=== PATIENT | female | born 1965 | race Caucasian/White ===

== ENCOUNTER → 2020-01-30 10:27 | Outpatient (BNVA) | payer SELFPAY | PROVIDERS: Visit Provider Family Medicine Adult Medicine | DX: N39.0 Urinary tract infection, site not specified (principal) | CPT/HCPCS: 81000 ==

== ENCOUNTER → 2020-02-02 11:51 | Outpatient (BNVA) | payer SELFPAY | DX: R50.9 Fever, unspecified (principal) | CPT/HCPCS: 87400 ==

== ENCOUNTER 2020-12-05 16:16 | Emergency (ER) | payer SELFPAY ==
[2020-12-05 17:56] VITALS: BP 105/69; PULSE 67; RESP 12; TEMP 36.9; O2SAT 97; BMI 20.9
--- NOTE | 2020-12-05 20:04 | XRR_ITS ---
PROCEDURE INFORMATION: Exam: XR Left Foot Exam date and time: 12/05/2020 8:04 PM Age: 55 years old Clinical indication: Injury or trauma; Other: Dropped pallet on foot; Blunt trauma; Injury date: 11/06/2020; Injury details: Dropped loaded pallet on foot. Left foot was numb for two weeks. TECHNIQUE: Imaging protocol: XR Left foot. Views: 3 or more views. COMPARISON: No relevant prior studies available. FINDINGS: Bones/joints: Normal. Soft tissues: Normal. XR/XR foot LT min 3V* [id number] IMPRESSION: No acute findings.
--- NOTE | 2020-12-05 20:08 | ED_ITS ---
HPI - Extremity Problem General: Chief complaint: Extremity Injury, Lower Stated complaint: L FOOT & TOES INJURY Time Seen by Provider: 12/05/20 20:02 History of Present Illness: HPI Narrative: Patient dropped a pallet on her big toe on her left foot at the beginning of the month. Patient comes in due to continued discomfort and pain to the great toe of the foot. Patient reports at first it was numb then started throbbing. Patient appears well. Patient appears no acute distress. Review of Systems General: Reports: 10 or more systems reviewed and unremarkable except in HPI and below Musc: Reports: other (Injury great toe left foot) [facility] ED PFS: Medical History (Updated 12/05/20 @ 20:23 by PAULETTE Lowery) Nausea URI (upper respiratory infection) Social History (Updated 08/08/20 @ 08:51 by Aleks Dodd LPN) Smoking and tobacco status: former smoker Quit status (tobacco): has quit using tobacco Year quit tobacco: 2017 Second hand smoke exposure: No Alcohol intake: never Lives independently: No Household members: family Housing: House Marital status: Number of children: 3 Number of grandchildren: 2 Highest education level completed: High School Graduate service: No Current occupational status: employed Current occupation: [email or web address] Current occupational exposures/hazards: Yes Pets and animals: Yes Pets & animals: dog(s) History of recent travel: No Sexually active: No Current gender identity: Female Physical Exam Const: COMMON NORMALS: no acute distress and patient oriented x3 GENERAL APPEARANCE: cooperative HENMT: COMMON NORMALS: normocephalic and Normal external nose present HEAD & SCALP: normal to inspection and normocephalic NOSE: Normal external nose present MOUTH: Normal oral and palatal mucosa present Eye: GENERAL EYE: appearance normal, both eyes and all related structures Neck/C-Spine: COMMON NORMALS: full ROM Chest: COMMONS NORMALS: normal inspection of the chest Resp: COMMON NORMALS: normal respiratory effort EFFORT & INSPECTION: Yes able to speak in complete sentences Cardio: COMMON NORMALS: regular rate and regular rhythm RATE: regular rate RHYTHM: regular rhythm GI: COMMON NORMALS: non-tender : COMMON NORMALS: Yes no CVA tenderness BLADDER/KIDNEY EXAM: Yes no CVA tenderness Back/Pelvis: COMMON NORMALS: no CVA tenderness and thoracic and lumbar spine normal to inspection Extremity: NARRATIVE EXTREMITY EXAM: Partial avulsion of the great toe nail on the left foot. Remainder exam of the foot is normal. Neuro: COMMON NORMALS: patient oriented x3 and moves all extremities Psych: COMMON NORMALS: mental status grossly normal and cooperative Skin: COMMON NORMALS: no rashes or lesions noted GENERAL SKIN EXAM: no rashes or lesions noted Course Vital Signs: Vital signs: Vital Signs Temperature 98.5 F 12/05/20 17:56 Pulse Rate 67 12/05/20 17:56 Respiratory Rate 12 12/05/20 17:56 Blood Pressure 105/69 12/05/20 17:56 Pulse Oximetry 97 12/05/20 17:56 MDM - Extremity (Nontraumatic) MDM Narrative: Medical decision making narrative: 55-year-old female comes in today with complaints of injury to the great toe on her left foot. On exam we see a loosened nail of the great toe on the left foot. No significant swelling or bruising is noted. Pulses are intact. Differential diagnosis includes partial toenail avulsion, fracture of the toe, contusion. X-ray noted no acute fracture although there may have been a old fracture that has healed. Reviewed exam with patient recommended protection of the nail with securing it with dressing or tape. Reviewed that the nail was going to come off is just probably whenever she is taking her foot and her shoe on her office catching and pulling on the nail bed. I recommended trimming the nail down as much as possible and taping it to protect it. Patient reported understanding and agreed to plan. Discharge Plan Discharge Patient Disposition: Home Clinical Impression: Toenail avulsion Qualifiers: Encounter type: initial encounter Qualified Code(s): S91.209A - Unspecified open wound of unspecified toe(s) with damage to nail, initial encounter Condition: Stable Prescriptions: No Action trazodone 50 mg tablet 100 mg PO .HS PRN (Reason: insomnia) Qty: 60 RF: 2 sertraline [Zoloft] 100 mg tablet 100 mg PO DAILY Qty: 30 RF: 2 levothyroxine 50 mcg capsule 50 mcg PO DAILY RF: 0 Discharge Orders: Discharge ED (Routine); Ordered 12/05/20 Ordered By: Martinez Salter Referrals: Chanell Moe, TI[employer]BE TECHNICIAN [Primary Care Provider] - Discharge Diet: Usual diet Discharge Activity: Increase activity as tolerated Patient Instructions: Foot Contusion (ED), Opioid Safety Activity Restrictions/Additional Instructions: Your toenail is partially avulsed. This means that it sustained significant injury causing part of it to . It will fall off in time. At this time it has loosened from the nail bed and a new nail is growing under it. I would recommend securing the nail with tape to protect it. Over the next 2 to 4 weeks I would expect the old nail to fall off. You could soak the nail in some Epson salt water to promote its loosening and removal. I would allow the nail to come off on its own. You could also trim the nail that is loosening up down with clippers. Watch the site for signs of infection such as redness or swelling. Wear a supportive comfortable shoe for protection. Follow-up with primary care or binder stripper machine of your choice. Coding Level of Care Code ED Clinical Investigator for Miesha Fweduin Exam Comprehensive
== END 2020-12-05 20:35 | disposition home or self-care (01) ==
PROVIDERS: Emergency Provider Nurse Practitioner Family; PCP Nurse Practitioner Family
DX: S91.202A Unspecified open wound of left great toe with damage to nail, initial encounter (principal); Z87.891 Personal history of nicotine dependence; W20.8XXA Other cause of strike by thrown, projected or falling object, initial encounter
CPT/HCPCS: 73630; 99282

== ENCOUNTER 2021-02-09 09:38 | Outpatient (CLI) | payer SELFPAY ==
[2021-02-09 10:18] LABS: Basophils # 0.1 10^3/uL (0.0-0.1); Basophils % 0.8 %; Eosinophils # 0.3 10^3/uL (0.0-0.8); Eosinophils % 4.2 %; Hematocrit 44.4 % (37.0-47.0); Hemoglobin 14.4 g/dL (11.5-15.3); Lymphocytes # 2.5 10^3/uL (0.8-4.8); Lymphocytes % 40.4 %; Mean Corpuscular HGB Conc 32.4 g/dL (30.0-36.0); Mean Corpuscular Hemoglobin 28.8 pg (28.0-34.0); Mean Corpuscular Volume 88.8 fl (81-99); Mean Platelet Volume 9.6 fL (7.4-10.4); Monocytes # 0.4 10^3/uL (0.2-0.9); Monocytes % 6.3 %; Neutrophils # 3.01 10^3/uL (1.8-7.7); Neutrophils % 48.1 %; Nucleated Red Blood Cells % 0 %; Platelet Count 233 10^3/cmm (130-400); Red Cell Distribution Width 12.7 % (12.1-15.1); White Blood Count 6.2 10^3/uL (4.0-10.0)
[2021-02-09 10:43] LABS: Alanine Aminotransferase 17 U/L (0-33); Albumin Level 4.2 g/dL (3.5-5.2); Alkaline Phosphatase 82 IU/L (35-105); Blood Urea Nitrogen 14 mg/dL (6-20); Calcium 9.3 mg/dL (8.5-10.5); Carbon Dioxide 26 mmol/L (22-29); Chloride 103 mmol/L (98-107); Globulin 3.1 g/dL (1.3-4.6); Glomerular Filtration Rate 127.6 mL/min (90-130); Glucose 85 mg/dL (65-115); Osmolality Calculated 288 mOsm/kg (285-295); Sodium 139 mmol/L (136-145); Total Bilirubin 0.7 mg/dL (0.15-1.2); Total Protein 7.3 g/dL (6.6-8.7)
[2021-02-09 11:13] LABS: Anion Gap 13.8 (5-19); Aspartate Amino Transferase 20 U/L (0-32); Potassium 3.8 mmol/L (3.5-5.1)
== END 2021-02-09 09:39 | disposition home or self-care (01) ==
LOC: LAB 09:43
PROVIDERS: PCP Nurse Practitioner Family; Visit Provider Nurse Practitioner Family
DX: A08.4 Viral intestinal infection, unspecified (principal); E78.5 Hyperlipidemia, unspecified
CPT/HCPCS: 36415; 80053; 83630; 85025; 87493; 87506

== ENCOUNTER 2021-02-27 14:06 | Emergency (ER) | payer SELFPAY ==
[2021-02-27 14:12] VITALS: BP 103/69; PULSE 92; RESP 19; TEMP 36.4; O2SAT 96; BMI 21.6
[2021-02-27 14:17] VITALS: BP 111/68; PULSE 69; RESP 17; TEMP 36.8; O2SAT 98
--- NOTE | 2021-02-27 14:25 | XR_ITS ---
WS: [id number] Portable AP upright chest, 02/27/2021 Clinical Data: chest pain and dyspnea; covid 6 weeks ago Comparison: None. Findings: No nodules, masses or effusions are seen. The heart is normal. The pulmonary vascularity is not increased. No pneumothorax is seen. There is minimal patchy bilateral lower lobe opacity which c ould represent atelectasis and/or minimal pneumonia. Monitor leads on the chest wall. There is a dext roscoliosis. XR/XR chest 1V portable [id number] Impression: Minimal patchy lower lobe pulmonary opacity and recommend follow-up chest x-ray in 3-5 days.
--- NOTE | 2021-02-27 14:25 | ECG_ITS ---
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 Measurements Intervals Sarita Rate: 82 P: 71 AZ: 177 QRS: 80 QRSD: 81 T: 68 QT: 374 QTc: 439 Interpretive Statements SINUS RHYTHM No previous ECG available for comparison Electronically Signed On 02-27-2021 22:38:52 CDT by Saman Guillen M.D. [email or web address]
--- NOTE | 2021-02-27 14:28 | ED_ITS ---
HPI - SOB/Dyspnea General: Chief Complaint: Shortness of Breath/Dyspnea Stated Complaint: CP, SOB Time Seen by Provider: 02/27/21 14:19 Source: patient and family Mode of arrival: ambulatory Limitations: no limitations History of Present Illness: HPI Narrative: Patient with complaints of increased shortness of breath over the past 2 weeks. She states she had Covid approximately 6 weeks ago. She also reports pleuritic chest pain bilaterally in the sternal area. She also reports gastric reflux occasionally. She states pain sometimes radiates to her right shoulder. She denies any fever. She does have a dry cough. She states she has been back to work since February 08. She states she was diagnosed with Covid in mid-January. She denies any recent fever or chills. Possible history includes hypothyroidism and depression. She takes Zoloft and thyroid replacement medication. She does not smoke. Primary care physicians at [facility]. She denies any possible history of diabetes or heart disease. MD elicited complaint: shortness of breath, cough, pain with inspiration and chest pain Pertinent past history: other (Covid infection 6 weeks ago) Onset (ago): week(s) (2) Timing: constant and other (Fluctuating intensity) Severity: mild Exacerbating factors: exertion Relieving factors: rest Associated symptoms: Reports chest pain and cough; Deny abdominal pain, chest congestion, diaphoresis, dizziness, extremity pain, fever(s), hemoptysis, lightheadedness, myalgias, nausea, orthopnea, palpitations, paresthesias, syncope or vomiting Treatment prior to arrival: none Related Data: Home oxygen amount: none Review of Systems Const: Reports: fatigue; Denies: fever(s), chills or diaphoresis Eyes: Denies: change in vision ENMT: Denies: throat pain Card: Reports: chest pain and dyspnea on exertion; Denies: palpitations, irregular heart rhythm, swelling of feet/ankles, lightheadedness, syncope, orthopnea or leg pain with exertion Resp: Reports: dyspnea, non-productive cough and pain on inspiration; Denies: productive cough, wheezing, stridor, hemoptysis or chest congestion GI: Denies: abdominal pain, nausea or vomiting : Denies: flank pain Musc: Denies: neck pain, back pain, extremity pain or extremity swelling Skin/Breast: Denies: rash or pruritus Neuro: Denies: headache(s) or dizziness Psych: Denies: anxiety Ruben/Lymph: Denies: enlarged lymph nodes PFSH ED PFSH: Medical History Nausea Psychiatric care URI (upper respiratory infection) Social History Smoking and tobacco status: former smoker Quit status (tobacco): has quit using tobacco Year quit tobacco: 2017 Second hand smoke exposure: No Alcohol intake: never Lives independently: No Household members: family Housing: House Marital status: Number of children: 3 Number of grandchildren: 2 Highest education level completed: High School Graduate service: No Current occupational status: employed Current occupation: [employer] Current occupational exposures/hazards: Yes Pets and animals: Yes Pets & animals: dog(s) History of recent travel: No Sexually active: No Current gender identity: Female Physical Exam Const: COMMON NORMALS: no acute distress, patient oriented x3, no limitations, alert and well nourished GENERAL APPEARANCE: cooperative HENMT: COMMON NORMALS: normocephalic and atraumatic HEAD & SCALP: normocephalic and atraumatic FACE & SINUS: normal facial exam Eye: COMMON NORMALS: EOMs intact bilaterally Neck/C-Spine: COMMON NORMALS: full ROM, no lymphadenopathy, supple and no meningeal signs GENERAL: Yes normal visual inspection Lymph: LYMPHATIC: no lymphadenopathy noted Chest: COMMONS NORMALS: normal inspection of the chest and normal palpation of entire chest wall CHEST: No Ecchymosis present and No rash Resp: COMMON NORMALS: normal respiratory effort, No retractions, No use of accessory muscles and clear to auscultation bilaterally EFFORT & INSPECTION: No respiratory distress AUSCULTATION: clear to auscultation bilaterally Cardio: COMMON NORMALS: regular rate, regular rhythm and Peripheral pulses 2+ throughout JUGULAR VENOUS DISTENTION: no JVD RATE: regular rate RHYTHM: regular rhythm PERIPHERAL PULSES: Peripheral pulses 2+ throughout GI: COMMON NORMALS: Normal to inspection, nondistended, normoactive bowel sounds present and non-tender : COMMON NORMALS: Yes no CVA tenderness BLADDER/KIDNEY EXAM: Yes no CVA tenderness Back/Pelvis: COMMON NORMALS: no CVA tenderness Extremity: COMMON NORMALS: normal to inspection, full ROM and capillary refill normal Neuro: COMMON NORMALS: patient oriented x3, CN's II-XII intact bilaterally, no focal motor deficits and no sensory deficits noted SENSORIUM/ORIENTATION: Yes alert MENINGEAL SIGNS: Yes no meningeal signs Psych: COMMON NORMALS: mental status grossly normal and Normal thought process present THOUGHT PROCESS: Normal thought process present Skin: COMMON NORMALS: no rashes or lesions noted and no wounds GENERAL SKIN EXAM: no rashes or lesions noted Course Vital Signs: Vital signs: Vital Signs Temperature 98.3 F 02/27/21 14:17 Pulse Rate 69 02/27/21 14:17 Respiratory Rate 17 02/27/21 14:17 Blood Pressure 111/68 02/27/21 14:17 Pulse Oximetry 98 02/27/21 14:17 MDM - SOB/Dyspnea MDM Narrative: Medical decision making narrative: See nursing assessment. Labs appear essentially within normal limits except for a D-dimer being mildly elevated. Lab Data: Labs: Lab Results 02/27/21 02/27/21 02/27/21 14:40 14:40 14:40 WBC 5.6 10^3/uL 10^3/ uL (4.0-10.0) RBC 4.78 10^6/uL 10^6 /uL (4.1-5.3) Hgb 13.8 g/dL g/dL (11.5-15.3) Hct 42.4 % % (37.0-47.0) MCV 88.7 fl fl (81-99) MCH 28.9 pg pg (28.0-34.0) MCHC 32.5 g/dL g/dL (30.0-36.0) RDW 12.8 % % (12.1-15.1) Plt Count 206 10^3/cmm 10^3 /cmm (130-400) MPV 9.3 fL fL (7.4-10.4) Neut % (Auto) 39.5 % % Lymph % (Auto) 45.9 % % [place] % (Auto) 7.3 % % Eos % (Auto) 6.4 % % Baso % (Auto) 0.7 % % Neut # (Auto) 2.23 10^3/uL 10^3 /uL (1.8-7.7) Lymph # (Auto) 2.6 10^3/uL 10^3/ uL (0.8-4.8) [place] # (Auto) 0.4 10^3/uL 10^3/ uL (0.2-0.9) Eos # (Auto) 0.4 10^3/uL 10^3/ uL (0.0-0.8) Baso # (Auto) 0.0 10^3/uL 10^3/ uL (0.0-0.1) Nucleated RBC % (a uto) 0 % % Nucleated RBCs # 0.0 /100WBC /100W BC APTT 26.6 SECONDS SECO NDS (23.9-36.7) D-Dimer 2.28 ug/mIFEU H u g/mIFEU (0-0.59) Sodium 139 mmol/L mmol/L (136-145) Potassium 4.0 mmol/L mmol/L (3.5-5.1) Chloride 101 mmol/L mmol/L (98-107) Carbon Dioxide 24 mmol/L mmol/L (22-29) Anion Gap 18.0 (5-19) BUN 14 mg/dL mg/dL (6-20) Creatinine 0.7 mg/dL mg/dL (0.5-0.9) GFR Calculation 86.2 mL/min L mL/ min (90-130) Glucose 101 mg/dL mg/dL (65-115) Calculated Osmolal ity 289 mOsm/kg mOsm/ kg (285-295) Lactate Calcium 9.4 mg/dL mg/dL (8.5-10.5) Total Bilirubin 0.7 mg/dL mg/dL (0.15-1.2) AST 23 U/L U/L (0-32) ALT 18 U/L U/L (0-33) Alkaline Phosphata se 93 IU/L IU/L (35-105) Troponin T Baselin e Troponin T 120 Min [place] Delta Troponin T Total Protein 7.5 g/dL g/dL (6.6-8.7) Albumin 4.4 g/dL g/dL (3.5-5.2) Globulin 3.1 g/dL g/dL (1.3-4.6) 02/27/21 02/27/21 02/27/21 14:40 14:40 16:44 WBC RBC Hgb Hct MCV MCH MCHC RDW Plt Count MPV Neut % (Auto) Lymph % (Auto) [place] % (Auto) Eos % (Auto) Baso % (Auto) Neut # (Auto) Lymph # (Auto) [place] # (Auto) Eos # (Auto) Baso # (Auto) Nucleated RBC % (a uto) Nucleated RBCs # APTT D-Dimer Sodium Potassium Chloride Carbon Dioxide Anion Gap BUN Creatinine GFR Calculation Glucose Calculated Osmolal ity Lactate 1.8 mmol/L mmol/L (0.5-2.2) Calcium Total Bilirubin AST ALT Alkaline Phosphata se Troponin T Baselin e 6 ng/L ng/L (0-10) Troponin T 120 Min [place] 6.00 ng/L ng/L (0-10) Delta Troponin T 0 ABS# ABS# (0-10) Total Protein Albumin Globulin Imaging Data^: CXR: Attestation: I personally reviewed and interpreted this imaging study as follows: My impression: Atelectasis in the bases bilaterally. Radiologist's impression: Ordering Provider/Ordering MD: Nathan Andres MD Date of Service: 02/27/21 Procedure(s): XR chest 1V portable [id number] Accession Number(s): [id number] Report Number: [id number] WS: [id number] Portable AP upright chest, 02/27/2021 Clinical Data: chest pain and dyspnea; covid 6 weeks ago Comparison: None. Findings: No nodules, masses or effusions are seen. The heart is normal. The pulmonary vascularity is not increased. No pneumothorax is seen. There is minimal patchy bilateral lower lobe opacity which could represent atelectasis and/or minimal pneumonia. Monitor leads on the chest wall. There is a dextroscoliosis. XR/XR chest 1V portable [id number] Impression: Minimal patchy lower lobe pulmonary opacity and recommend follow-up chest x-ray in 3-5 days. Dictated By:Morenita Estrada MDSigned By:Morenita Estrada MDSigned Date/Time:02/27/[address] Chest: Radiologist's impression: PROCEDURE INFORMATION: Exam: CTA Chest With Contrast Exam date and time: 02/27/2021 3:45 PM Age: 56 years old Clinical indication: Shortness of breath; Sternal or substernal pain; Patient HX: Post covid C/O steernal cp and SOB x 2 weeks; Additional info: Shortness of breath, covid infection 6 weeks ago. D-dimer 2.28; Normal bun and TECHNIQUE: Imaging protocol: Computed tomographic angiography of the chest with contrast. 3D rendering (Not supervised by radiologist): MIP and/or 3D reconstructed images were created by the technologist. Radiation optimization: All CT scans at this facility use at least one of these dose optimization techniques: automated exposure control; mA and/or kV adjustment per patient size (includes targeted exams where dose is matched to clinical indication); or iterative reconstruction. Contrast material: OMNI 350; Contrast volume: 68 ml; Contrast route: INTRAVENOUS (IV); COMPARISON: CR XR chest 1V portable [id number] 02/27/2021 2:42 PM RADIATION DOSE METRICS: Total DLP (mGy-cm): 504.89 FINDINGS: Pulmonary arteries: Normal. No pulmonary emboli. Aorta: Unremarkable. No aortic aneurysm. No aortic dissection. Lungs: Severe centrilobular emphysema. Mild scarring in the lung apices. Mild atelectasis in the lingula. The lungs are otherwise clear. Pleural spaces: Unremarkable. No pneumothorax. No pleural effusion. Heart: Small pericardial effusion. Mediastinal space: 1.4 cm oval low-density lesion in the anterior mediastinum, Hounsfield units less than 20. Lymph nodes: Unremarkable. No enlarged lymph nodes. Bones/joints: Mild thoracic curvature. Mild degenerative changes. No fracture. Soft tissues: Unremarkable. CT/CT angio chest [id number] IMPRESSION: 1. No evidence for pulmonary embolus or other acute finding. 2. Severe emphysema. 3. 1.4 cm fluid density oval lesion in the anterior mediastinum. This could represent a small congenital cyst or a low-density reactive lymph node. Radiation Dose CTDIVOL = (mGy): DLP = 504.89 (mGy-cm) Dictated By:Gregg Patiño By:Gregg Patiño Date/Time:02/27/211715 Discharge Plan Discharge Clinical Impression: Shortness of breath, Personal history of COVID-19 Condition: Stable Prescriptions: No Action trazodone 50 mg tablet 100 mg PO .HS PRN (Reason: insomnia) Qty: 60 RF: 2 levothyroxine 50 mcg capsule 50 mcg PO DAILY RF: 0 prazosin 2 mg capsule 2 mg PO .HS Qty: 30 RF: 2 sertraline [Zoloft] 100 mg tablet 150 mg PO DAILY Qty: 45 RF: 2 Referrals: Chanell Moe, ASSISTANT FEDERAL PUBLIC DEFENDER [Primary Care Provider] - Coding Level of Care Code ED Registration Rep for Chg Fwd Exam Comprehensive
[2021-02-27 14:54] LABS: Basophils % 0.7 %; Eosinophils # 0.4 10^3/uL (0.0-0.8); Eosinophils % 6.4 %; Hematocrit 42.4 % (37.0-47.0); Hemoglobin 13.8 g/dL (11.5-15.3); Lymphocytes # 2.6 10^3/uL (0.8-4.8); Lymphocytes % 45.9 %; Mean Corpuscular HGB Conc 32.5 g/dL (30.0-36.0); Mean Corpuscular Hemoglobin 28.9 pg (28.0-34.0); Mean Corpuscular Volume 88.7 fl (81-99); Mean Platelet Volume 9.3 fL (7.4-10.4); Monocytes # 0.4 10^3/uL (0.2-0.9); Monocytes % 7.3 %; Neutrophils # 2.23 10^3/uL (1.8-7.7); Neutrophils % 39.5 %; Nucleated Red Blood Cells % 0 %; Platelet Count 206 10^3/cmm (130-400); Red Blood Count 4.78 10^6/uL (4.1-5.3); Red Cell Distribution Width 12.8 % (12.1-15.1); White Blood Count 5.6 10^3/uL (4.0-10.0)
[2021-02-27 15:12] LABS: Partial Thromboplastin Time 26.6 SECONDS (23.9-36.7)
[2021-02-27 15:14] LABS: D Dimer 2.28 ug/mIFEU (0-0.59)
[2021-02-27 15:16] LABS: Troponin(5th) Baseline 6 ng/L (0-10)
[2021-02-27 15:18] LABS: Alanine Aminotransferase 18 U/L (0-33); Albumin Level 4.4 g/dL (3.5-5.2); Alkaline Phosphatase 93 IU/L (35-105); Aspartate Amino Transferase 23 U/L (0-32); Blood Urea Nitrogen 14 mg/dL (6-20); Calcium 9.4 mg/dL (8.5-10.5); Carbon Dioxide 24 mmol/L (22-29); Chloride 101 mmol/L (98-107); Globulin 3.1 g/dL (1.3-4.6); Glomerular Filtration Rate 86.2 mL/min (90-130); Glucose 101 mg/dL (65-115); Osmolality Calculated 289 mOsm/kg (285-295); Sodium 139 mmol/L (136-145); Total Bilirubin 0.7 mg/dL (0.15-1.2); Total Protein 7.5 g/dL (6.6-8.7)
[2021-02-27] MEDS: aspirin 81 mg Chew Tablet 324 MG PO (15:18)
[2021-02-27 15:19] LABS: Lactate (Lactic Acid level) 1.8 mmol/L (0.5-2.2)
--- NOTE | 2021-02-27 15:45 | CTR_ITS ---
PROCEDURE INFORMATION: Exam: CTA Chest With Contrast Exam date and time: 02/27/2021 3:45 PM Age: 56 years old Clinical indication: Shortness of breath; Sternal or substernal pain; Patient HX: Post covid C/O steernal cp and SOB x 2 weeks; Additional info: Shortness of breath, covid infection 6 weeks ago. D-dimer 2.28; Normal bun and TECHNIQUE: Imaging protocol: Computed tomographic angiography of the chest with contrast. 3D rendering (Not supervised by radiologist): MIP and/or 3D reconstructed images were created by the technologist. Radiation optimization: All CT scans at this facility use at least one of these dose optimization techniques: automated exposure control; mA and/or kV adjustment per patient size (includes targeted exams where dose is matched to clinical indication); or iterative reconstruction. Contrast material: OMNI 350; Contrast volume: 68 ml; Contrast route: INTRAVENOUS (IV); COMPARISON: CR XR chest 1V portable [id number] 02/27/2021 2:42 PM RADIATION DOSE METRICS: Total DLP (mGy-cm): 504.89 FINDINGS: Pulmonary arteries: Normal. No pulmonary emboli. Aorta: Unremarkable. No aortic aneurysm. No aortic dissection. Lungs: Severe centrilobular emphysema. Mild scarring in the lung apices. Mild atelectasis in the lingula. The lungs are otherwise clear. Pleural spaces: Unremarkable. No pneumothorax. No pleural effusion. Heart: Small pericardial effusion. Mediastinal space: 1.4 cm oval low-density lesion in the anterior mediastinum, Hounsfield units less than 20. Lymph nodes: Unremarkable. No enlarged lymph nodes. Bones/joints: Mild thoracic curvature. Mild degenerative changes. No fracture. Soft tissues: Unremarkable. CT/CT angio chest [id number] IMPRESSION: 1. No evidence for pulmonary embolus or other acute finding. 2. Severe emphysema. 3. 1.4 cm fluid density oval lesion in the anterior mediastinum. This could represent a small congenital cyst or a low-density reactive lymph node. Radiation Dose CTDIVOL = (mGy): DLP = 504.89 (mGy-cm)
--- NOTE | 2021-02-27 15:48 | PC.NURSE ---
Pt arrived via POV with daughter from home. Pt states for the past 2 weeks she has been having chest pain substernally which worsens with exertion. Pt reports having Covid recently and since then her chest pain has been constant. Pt rates pain 5/10, pt denies any radiation or vomiting but states she has intermittent nausea. Pt A/O, vs taken, pt placed on monitor.
[2021-02-27] MEDS: iohexol 350 mg/mL 100 mL Btl IV (16:20)
[2021-02-27 17:35] LABS: Troponin 5 2HR Delta 0 ABS# (0-10)
== END 2021-02-27 18:32 | disposition home or self-care (01) ==
PROVIDERS: Emergency Provider Family Medicine; PCP Nurse Practitioner Family
DX: R06.02 Shortness of breath (principal); Z86.16 Personal history of COVID-19; Z87.891 Personal history of nicotine dependence
CPT/HCPCS: 71045; 71275; 80053; 83605; 84484; 85025; 85378; 85730; 87040; 93005; 99283; 99291; Q9967

== ENCOUNTER 2021-06-19 10:04 | Emergency (ER) | payer SELFPAY ==
[2021-06-19 10:13] VITALS: PULSE 90; RESP 24; TEMP 36.4; O2SAT 96; BMI 21.1
[2021-06-19 10:27] VITALS: BP 96/66
--- NOTE | 2021-06-19 10:53 | XR_ITS ---
WS: [id number] PORTABLE CHEST HISTORY: chest pain COMPARISON: 02/27/2021 Very minimal atelectasis at the LEFT lung base. Mild biapical pleural thickening and scarring. No pne umonia. No pleural effusion or pneumothorax. Cardiac size: Normal. Mediastinum/Aorta: Normal mediastinum. No osseous abnormality seen. XR/XR chest 1V portable [id number] IMPRESSION: 1. Very minimal atelectasis at the LEFT lung base. 2. No pneumonia.
[2021-06-19 11:11] LABS: Basophils # 0.1 10^3/uL (0.0-0.1); Basophils % 0.7 %; Eosinophils # 0.4 10^3/uL (0.0-0.8); Eosinophils % 4.7 %; Hematocrit 41.9 % (37.0-47.0); Hemoglobin 13.5 g/dL (11.5-15.3); Lymphocytes # 2.4 10^3/uL (0.8-4.8); Lymphocytes % 27.7 %; Mean Corpuscular HGB Conc 32.2 g/dL (30.0-36.0); Mean Corpuscular Hemoglobin 28.6 pg (28.0-34.0); Mean Corpuscular Volume 88.8 fl (81-99); Mean Platelet Volume 9.9 fL (7.4-10.4); Monocytes # 0.6 10^3/uL (0.2-0.9); Neutrophils % 59.7 %; Nucleated Red Blood Cells % 0 %; Platelet Count 229 10^3/cmm (130-400); Red Blood Count 4.72 10^6/uL (4.1-5.3); Red Cell Distribution Width 12.7 % (12.1-15.1); White Blood Count 8.7 10^3/uL (4.0-10.0)
[2021-06-19 11:20] LABS: Troponin(5th) Baseline 6 ng/L (0-10)
[2021-06-19 11:30] LABS: Alanine Aminotransferase 15 U/L (0-33); Albumin Level 4.8 g/dL (3.5-5.2); Alkaline Phosphatase 107 IU/L (35-105); Anion Gap 16.1 (5-19); Aspartate Amino Transferase 22 U/L (0-32); Blood Urea Nitrogen 15 mg/dL (6-20); Calcium 10.4 mg/dL (8.5-10.5); Carbon Dioxide 25 mmol/L (22-29); Chloride 102 mmol/L (98-107); Creatine Phosphokinase 186 U/L (26-192); Globulin 2.5 g/dL (1.3-4.6); Glomerular Filtration Rate 73.9 mL/min (90-130); Glucose 89 mg/dL (65-115); Lipase 30 U/L (13-60); NT Pro B Type Natriuretic Pept 102 pg/mL (0-125); Osmolality Calculated 288 mOsm/kg (285-295); Potassium 4.1 mmol/L (3.5-5.1); Sodium 139 mmol/L (136-145); Total Bilirubin 0.6 mg/dL (0.15-1.2); Total Protein 7.3 g/dL (6.6-8.7)
--- NOTE | 2021-06-19 12:10 | ED_ITS ---
HPI - Chest Pain General: Chief Complaint: Chest Pain Stated Complaint: Chest pains and SOB Time Seen by Provider: 06/19/21 12:08 History of Present Illness: Ms. Solorzano is a 56-year-old lady with remote history of tobaccoism who presents emergency department due to progressive shortness of breath and chest discomfort. She reports longstanding history of shortness of breath after 2 infections with COVID. However over the past few weeks her symptoms have progressed. She notes worse symptoms with exertion and also laying flat. Additionally over the past 3 to 4 days she has developed pain in the middle of her chest without significant radiation. This pain is at times burning and feels like reflux however other times just feels like pain. Denies frequent history of similar. She has tried home medications without relief. She has been compliant with her inhalers which is also not provided her typical relief. Denies infectious symptoms. No other specific changes in health, exacerbating, relieving factors identified. Pertinent past history: other Onset (ago): day(s) Timing of current episode: increasing Pain location: substernal Pain radiation: none Severity: moderate Quality: dull and other Relieving factors: nothing Exacerbating factors: exertion and supine Associated symptoms: Deny abdominal pain, fever(s) or leg edema Review of Systems 2 General: Reports: 10 or more systems reviewed and unremarkable except in HPI and below Const: Denies: fever(s) GI: Denies: abdominal pain PFSH ED PFSH: Medical History Nausea Psychiatric care URI (upper respiratory infection) Social History Smoking and tobacco status: former smoker Quit status (tobacco): has quit using tobacco Year quit tobacco: 2017 Second hand smoke exposure: No Alcohol intake: never Lives independently: No Household members: family Housing: House Marital status: Number of children: 3 Number of grandchildren: 2 Highest education level completed: High School Graduate service: No Current occupational status: employed Current occupation: [employer] Current occupational exposures/hazards: Yes Pets and animals: Yes Pets & animals: dog(s) History of recent travel: No Sexually active: No Current gender identity: Female Physical Exam Const: COMMON NORMALS: alert GENERAL APPEARANCE: cooperative and well developed HENMT: COMMON NORMALS: normocephalic and atraumatic HEAD & SCALP: normocephalic and atraumatic Eye: COMMON NORMALS: conjunctivae normal CONJUNCTIVA: Yes conjunctivae normal SCLERA: sclerae normal Neck/C-Spine: COMMON NORMALS: supple and no meningeal signs GENERAL: Yes trachea midline Resp: COMMON NORMALS: normal respiratory effort AUSCULTATION: wheezes (Mild end expiratory) and diminished lung sounds Cardio: COMMON NORMALS: regular rate and regular rhythm RATE: regular rate RHYTHM: regular rhythm OTHER: No peripheral edema GI: COMMON NORMALS: Soft to palpation PALPATION: Yes Soft to palpation and No Tenderness to palpation present (GI) PERCUSSION: normal to percussion Extremity: GENERAL: Yes normal exam except as noted and No edema Neuro: COMMON NORMALS: moves all extremities SENSORIUM/ORIENTATION: Yes alert and No Orientation impaired MENINGEAL SIGNS: Yes no meningeal signs Psych: COMMON NORMALS: mental status grossly normal and Normal thought process present THOUGHT PROCESS: Normal thought process present Course ED course: - Patient was seen and evaluated by me at bedside - Patient placed on cardiac monitors, IV access obtained - Initial evaluation notable for exam as above - Aspirin and nitro ordered. Breathing treatment ordered. GI cocktail ordered. - Labs notable for no acute hematologic abnormality. Metabolic panel without acute electrolyte derangement to explain symptoms. BNP is normal. Negative viral studies and urinalysis. - Imaging notable for minimal atelectasis of the left lung base - Upon serial reexamination after treatment the patient was mildly improved - Based on patient history, evaluation, labs, and imaging as interpreted the most likely cause of the patient's condition is chest pain and shortness of breath of unclear etiology. History is concerning for COPD exacerbation and shortness of breath will be treated as such. - The results of ED evaluation were discussed with the patient including potential disposition options. I offered admission given that patient likely has moderate risk heart score and requires further cardiac evaluation however the patient declined given that she presented on a Tuesday and would be unable to get a stress test until Tuesday if she was kept in the hospital that long. I discussed prescriptions and/or symptomatic cares (if applicable) including appropriate and responsible use, followup plan, and return precautions. The patient verbalized understanding and felt safe for discharge. - Patient discharged in satisfactory condition. Note: Click bubbles or prepopulated duran in note writing are used for assistance with data collection and billing and are inherently more limited than narrative and other text portions of this note. Please use narrative for additional clinical history and defer to narrative/free test for any case of contradictory information. If information appears in only free text or click bubble it should be considered present or absent as reported. Please contact note technical document writer for clarifications of clinical information or contradictory information. MDM is a brief summary, contradictory or erroneous seeming information should be clarified and full note should be reviewed. Vital Signs: Vital signs: Vital Signs Temperature 97.6 F 06/19/21 10:13 Pulse Rate 65 06/19/21 13:39 Respiratory Rate 18 06/19/21 13:39 Blood Pressure 122/69 06/19/21 13:39 Pulse Oximetry 100 06/19/21 13:39 MDM - Chest Pain Medical Decision Making 56-year-old lady presenting with chest pain shortness of breath. Negative troponins in the emergency department. Moderate risk by heart score, offered admission however going into the weekend patient declines admission as she would not likely be able to get a stress test until Tuesday. I will message case management for outpatient stress test. In the meantime I will treat for COPD exacerbation. Strict return precautions given. Patient satisfactory for outpatient management based on shared decision making. Medical Records I reviewed the patient's medical records. Lab Data I reviewed the patient's lab results. : 06/19/21 10:27 06/19/21 10:27 Radiology Impressions Chest X-Ray 06/19/21 10:53 IMPRESSION: 1. Very minimal atelectasis at the LEFT lung base. 2. No pneumonia. Laboratory Results WBC 8.7 10^3/uL (4.0-10.0) 06/19/21 10:27 RBC 4.72 10^6/uL (4.1-5.3) 06/19/21 10:27 Hgb 13.5 g/dL (11.5-15.3) 06/19/21 10:27 Hct 41.9 % (37.0-47.0) 06/19/21 10:27 MCV 88.8 fl (81-99) 06/19/21 10:27 MCH 28.6 pg (28.0-34.0) 06/19/21 10:27 MCHC 32.2 g/dL (30.0-36.0) 06/19/21 10:27 RDW 12.7 % (12.1-15.1) 06/19/21 10:27 Plt Count 229 10^3/cmm (130-400) 06/19/21 10:27 MPV 9.9 fL (7.4-10.4) 06/19/21 10:27 Neut % (Auto) 59.7 % 06/19/21 10:27 Lymph % (Auto) 27.7 % 06/19/21 10:27 [place] % (Auto) 7.0 % 06/19/21 10:27 Eos % (Auto) 4.7 % 06/19/21 10:27 Baso % (Auto) 0.7 % 06/19/21 10:27 Neut # (Auto) 5.20 10^3/uL (1.8-7.7) 06/19/21 10: Lymph # (Auto) 2.4 10^3/uL (0.8-4.8) 06/19/21 10:27 [place] # (Auto) 0.6 10^3/uL (0.2-0.9) 06/19/21 10:27 Eos # (Auto) 0.4 10^3/uL (0.0-0.8) 06/19/21 10:27 Baso # (Auto) 0.1 10^3/uL (0.0-0.1) 06/19/21 10:27 Nucleated RBC % (auto) 0 % 06/19/21 10: Nucleated RBCs # 0.0 /100WBC 06/19/21 10:27 PT 12.50 SECONDS (12.1-14.9) 06/19/21 12:51 INR 0.91 (0.8-1.2) 06/19/21 12:51 Sodium 139 mmol/L (136-145) 06/19/21 10:27 Potassium 4.1 mmol/L (3.5-5.1) 06/19/21 10:27 Chloride 102 mmol/L (98-107) 06/19/21 10:27 Carbon Dioxide 25 mmol/L (22-29) 06/19/21 10:27 Anion Gap 16.1 (5-19) 06/19/21 10:27 BUN 15 mg/dL (6-20) 06/19/21 10:27 Creatinine 0.8 mg/dL (0.5-0.9) 06/19/21 10:27 GFR Calculation 73.9 mL/min (90-130) L 06/19/21 10:27 Glucose 89 mg/dL (65-115) 06/19/21 10:27 Calculated Osmolality 288 mOsm/kg (285-295) 06/19/21 10:27 Calcium 10.4 mg/dL (8.5-10.5) 06/19/21 10:27 Total Bilirubin 0.6 mg/dL (0.15-1.2) 06/19/21 10:27 AST 22 U/L (0-32) 06/19/21 10: ALT 15 U/L (0-33) 06/19/21 10:27 Alkaline Phosphatase 107 IU/L (35-105) H 06/19/21 10:27 Creatine Kinase 186 U/L (26-192) 06/19/21 10:27 Troponin T Baseline 6 ng/L (0-10) 06/19/21 10:27 Troponin T 120 Minute 6.00 ng/L (0-10) 06/19/21 13:32 Delta Troponin T 0 ABS# (0-10) 06/19/21 13:32 NT-Pro-B Natriuret Pep 102 pg/mL (0-125) 06/19/21 10:27 Total Protein 7.3 g/dL (6.6-8.7) 06/19/21 10:27 Albumin 4.8 g/dL (3.5-5.2) 06/19/21 10:27 Globulin 2.5 g/dL (1.3-4.6) 06/19/21 10:27 Lipase 30 U/L (13-60) 06/19/21 10:27 Procalcitonin 0.05 ng/mL (0-0.5) 06/19/21 13:32 Urine Color Straw (Yellow) 06/19/21 13:00 Urine Appearance Clear (CLEAR) 06/19/21 13:00 Urine pH 8 (5-7) H 06/19/21 13:00 Ur Specific [place] 1.010 (1.005-1.030) 06/19/21 13:00 Urine Protein Neg (Negative) 06/19/21 13:00 Urine Glucose (UA) Norm (Normal) 06/19/21 13:00 Urine Ketones Negative (Negative) 06/19/21 13:00 Urine Blood Neg (Negative) 06/19/21 13:00 Urine Nitrate Negative (Negative) 06/19/21 13:00 Urine Bilirubin Neg (Negative) 06/19/21 13:00 Prot Sulfosalicylic Acd Negative (Negative) 06/19/21 13:00 Urine Urobilinogen Norm mg/dL (Negative) 06/19/21 13:00 Ur Leukocyte Esterase Negative (Negative) 06/19/21 13:00 Coronavirus 229E (PCR) Not detected (NOT DETECT) 06/19/21 13:32 Influenza Type A Ag Negative (Negative) 06/19/21 13:32 Influenza Type B Ag Negative (Negative) 06/19/21 13:32 SARS-CoV-2 (PCR) Not detected (NOT DETECT) 06/19/21 13:32 EKG Data EKG 1: I personally reviewed and interpreted this EKG as follows: EKG interpretation date: 06/19/21 EKG interpretation time: 10:25 Interpretation: Twelve-lead EKG shows a regular rhythm at a rate of 94. W[place] interval 171, QRS duration 83, QTc 425. Normal axis. Interpretation: Sinus rhythm. Discharge Plan Discharge Patient Disposition: Home Clinical Impression: Chest pain, Shortness of breath, COPD exacerbation Condition: Stable Prescriptions: New doxycycline hyclate 100 mg tablet 100 mg PO BID 7 Days Qty: 14 0RF No Action levothyroxine 50 mcg capsule 50 mcg PO DAILY 0RF sertraline [Zoloft] 100 mg tablet 150 mg PO DAILY Qty: 45 2RF prazosin 2 mg capsule 2 mg PO .HS Qty: 30 2RF albuterol sulfate 90 mcg/actuation HFA aerosol inhaler 2 inh inhalation Q4H Qty: 8.5 2RF Rx Instructions: As needed for shortness of breath. Discharge Orders: Discharge ED (Routine); Ordered 06/19/21 Ordered By: Aleks Chicas Referrals: Chanell Moe, ACCOUNTING MACHINE MECHANIC [Primary Care Provider] - Discharge Diet: Usual diet Discharge Activity: Resume usual activity Patient Instructions: Chest Pain (ED), COPD (Chronic Obstructive Pulmonary Disease) (ED), Shortness of Breath (ED) Activity Restrictions/Additional Instructions: Thank you for visiting the emergency department. You were seen and evaluated for chest pain and shortness of breath. The exact cause of your symptoms is unclear. As discussed you do require further evaluation for possible heart etiologies of your chest pain. In the meantime you will be treated for COPD exacerbation. Please follow-up with your primary care provider. Please return to the emergency department for worsening symptoms or anything else that you are concerned about a feel needs emergency department evaluation. Coding Level of Care Code ED Bleach Boiler Puller for Miesha Fwd Exam Comprehensive
[2021-06-19 13:16] LABS: INR 0.91 (0.8-1.2)
[2021-06-19 13:22] VITALS: PULSE 90; RESP 24; O2SAT 98
[2021-06-19] MEDS: ipratropium-albuterol 3 mL Neb INHALATION (13:22)
[2021-06-19 13:30] VITALS: PULSE 90; RESP 24; O2SAT 98
[2021-06-19 13:31] LABS: Add Urine Microscopic? NO; Charge for UA Resulting for Rev
[2021-06-19 13:34] LABS: Bilirubin Urine Neg (Negative); Blood Urine Neg (Negative); Glucose Urine UA Norm (Normal); Ketones Urine Negative (Negative); Leukocyte Esterase Urine Negative (Negative); Nitrate Urine Negative (Negative); Protein Urine Neg (Negative); Sulfosalicylic Acid Urine Negative (Negative); Urine Appearance Clear (CLEAR); Urine Color Straw (Yellow); Urobilinogen Urine Norm (Negative); pH Urine 8 (5-7)
[2021-06-19 13:39] VITALS: BP 122/69; PULSE 65; RESP 18; O2SAT 100
[2021-06-19] MEDS: aspirin 81 mg Chew Tablet 324 MG PO (14:13)
[2021-06-19] MEDS: lidocaine 2% viscous 15 ML, aluminum-mag hydrox-simethicon 30 ML, sucralfate oral liq 1 GM PO (14:13)
[2021-06-19 14:28] LABS: Influenza A by IFA Negative (Negative)
[2021-06-19 14:29] LABS: Influenza B by IFA Negative (Negative)
[2021-06-19 14:30] LABS: Procalcitonin 0.05 ng/mL (0-0.5)
--- NOTE | 2021-06-19 14:31 | ECG_ITS ---
[facility] Test Date: 2021-06-19 Pat Name: Kerrie Solorzano Department: Room: Gender: Female Jointer Operator: : 1965 Requested By: Aleks Chicas Order Number: [id number] Reading MD: JUNITO DOLAN Measurements Intervals Ona Rate: 94 P: 79 CT: 171 QRS: 90 QRSD: 83 T: 68 QT: 340 QTc: 425 Interpretive Statements SINUS RHYTHM Compared to ECG 02/27/2021 14:54:38 No significant changes Electronically Signed On 06-19-2021 22:56:17 IRRIGATION ENGINEER by JUNITO DOLAN [id number]
[2021-06-19 15:05] LABS: Troponin 5 2HR Delta 0 ABS# (0-10)
[2021-06-19 17:52] LABS: Adenovirus Not Detected (NOT DETECT); Chlamydia Pneumoniae Not Detected (NOT DETECT); Coronavirus 229E,HKU1,NL63,OC4 Not Detected (NOT DETECT); Human Metapneumovirus Not Detected (NOT DETECT); Human Rhinovirus/Enterovirus Not Detected (NOT DETECT); Influenza A Not Detected (NOT DETECT); Influenza A H1 Not Detected (NOT DETECT); Influenza A H1-2009 Not Detected (NOT DETECT); Influenza A H3 Not Detected (NOT DETECT); Influenza B Not Detected (NOT DETECT); Mycoplasma Pneumoniae Not Detected (NOT DETECT); Parainfluenza Virus Type 1 Not Detected (NOT DETECT); Parainfluenza Virus Type 2 Not Detected (NOT DETECT); Parainfluenza Virus Type 3 Not Detected (NOT DETECT); Parainfluenza Virus Type 4 Not Detected (NOT DETECT); Respiratory Syncytial Virus A Not Detected (NOT DETECT); Respiratory Syncytial Virus B Not Detected (NOT DETECT); SARS-COV-2 Not Detected (NOT DETECT)
--- NOTE | 2021-06-23 14:44 | DCPLANNER ---
Addendum entered by Alma Sky 07/02/21 19:19: pst manager received conformation that centralized scheduling received the orders for both stress test, and echo. No appointment scheduled at this time. Original Note: pst manager had message to schedule an out patient stress test and echo cardiogram. pst manager faxed signed order to centralized scheduling, who will call patient with appointment information.
== END 2021-06-19 15:56 | disposition home or self-care (01) ==
PROVIDERS: Physician Assistant; Emergency Provider Emergency Medicine; PCP Nurse Practitioner Family
DX: J44.1 Chronic obstructive pulmonary disease with (acute) exacerbation (principal); R07.9 Chest pain, unspecified; Z87.891 Personal history of nicotine dependence; Z20.822 Contact with and (suspected) exposure to COVID-19
CPT/HCPCS: 71045; 80053; 81003; 82550; 83690; 83880; 84145; 84484; 85025; 85610; 87635; 87804; 93005; 94640; 99284

== ENCOUNTER 2021-09-27 14:53 | Emergency (ER) | payer OTHER, SELFPAY ==
[2021-09-27 15:00] VITALS: BP 106/76; PULSE 78; RESP 16; TEMP 36.6; O2SAT 96; BMI 22.0
--- NOTE | 2021-09-27 15:04 | CTR_ITS ---
PROCEDURE INFORMATION: Exam: CT Head Without Contrast Exam date and time: 09/27/2021 3:30 PM Age: 56 years old Clinical indication: Injury or trauma; Other: Hit on top of head; Work related; Blunt trauma (contusions or hematomas); Without loss of consciousness; Additional info: Hit on head with 12 lb object TECHNIQUE: Imaging protocol: Computed tomography of the head without contrast. Radiation optimization: All CT scans at this facility use at least one of these dose optimization techniques: automated exposure control; mA and/or kV adjustment per patient size (includes targeted exams where dose is matched to clinical indication); or iterative reconstruction. COMPARISON: No relevant prior studies available. RADIATION DOSE METRICS: Total DLP (mGy-cm): 690.55 FINDINGS: Brain: No hemorrhage. Mild diffuse cerebral atrophy and sequela of chronic small vessel ischemic disease. No mass effect. Cerebral ventricles: No ventriculomegaly. Paranasal sinuses: Visualized sinuses are unremarkable. No fluid levels. Mastoid air cells: Visualized mastoid air cells are well aerated. Bones/joints: Unremarkable. No acute fracture. Soft tissues: Unremarkable. CT/CT head wo con* [id number] IMPRESSION: 1. No acute intracranial abnormality. 2. Mild diffuse cerebral atrophy and sequela of chronic small vessel ischemic disease.
--- NOTE | 2021-09-27 15:05 | ED_ITS ---
HPI - Head Injury General: Chief complaint: Head Injury Stated complaint: Head injury Time Seen by Provider: 09/27/21 15:04 Source: patient Mode of arrival: ambulatory Limitations: no limitations History of Present Illness: 56-year-old female presents to the ER today for headache, nausea, dizziness, neck pain after being injured at work on . Patient reports she works at [employer] and had a 12 pound planter box fall down and hit her directly on top of the head. Patient reports she had immediate head pain and dizziness when it happened. She did not lose consciousness. Patient reports since then she has had continued headache and dizziness along with nausea. Patient reports the nausea happens about every 2 hours. She also has had constant neck pain more on the left than the right. She reports pain with any range of motion of her neck. Patient denies any blurry vision. Patient denies any prior head injury or neck injury. Review of Systems General: Reports: 10 or more systems reviewed and unremarkable except in HPI and below PFSH ED PFSH: Medical History Nausea Psychiatric care URI (upper respiratory infection) Social History Smoking and tobacco status: former smoker Quit status (tobacco): has quit using tobacco Year quit tobacco: 2017 Second hand smoke exposure: No Alcohol intake: never Lives independently: No Household members: family Housing: House Marital status: Number of children: 3 Number of grandchildren: 2 Highest education level completed: High School Graduate service: No Current occupational status: employed Current occupation: [employer] Current occupational exposures/hazards: Yes Pets and animals: Yes Pets & animals: dog(s) History of recent travel: No Sexually active: No Current gender identity: Female Physical Exam Const: COMMON NORMALS: average body habitus, patient oriented x3, no limitations and healthy appearing HENMT: COMMON NORMALS: normocephalic, atraumatic, external ears normal, Normal external nose present, Normal nasal mucous membranes and turbinates present and moist oral mucous membranes HEAD & SCALP: normocephalic and atraumatic NOSE: Normal external nose present and Normal nasal mucous membranes and turbinates present EXTERNAL EAR: Yes external ears normal Eye: COMMON NORMALS: Equal, round and reactive pupils present, EOMs intact bilaterally and conjunctivae normal CONJUNCTIVA: Yes conjunctivae normal PUPIL: Yes Equal, round and reactive pupils present Neck/C-Spine: GENERAL: Yes normal visual inspection CERVICAL SPINE: Yes cervical ROM normal, Yes Cervical spine tenderness C5 and C6 and Yes Paracervical muscle tenderness left>right Resp: COMMON NORMALS: normal respiratory effort, No retractions and clear to auscultation bilaterally AUSCULTATION: clear to auscultation bilaterally Cardio: COMMON NORMALS: regular rate and regular rhythm RATE: regular rate RHYTHM: regular rhythm Back/Pelvis: COMMON NORMALS: thoraco-lumbar ROM normal Extremity: COMMON NORMALS: normal to inspection and full ROM Neuro: COMMON NORMALS: patient oriented x3 Psych: COMMON NORMALS: mental status grossly normal, Normal thought process present and cooperative THOUGHT PROCESS: Normal thought process present Skin: COMMON NORMALS: no rashes or lesions noted GENERAL SKIN EXAM: no rashes or lesions noted Course ED course: 56-year-old female presents to the ER today for headache, dizzine ss, nausea, neck pain after an injury at work on . Patient was hit on top of the head with a 12 pound planter box. Since then she has had symptoms as mentioned above. Patient has not been taking anything for her symptoms at this time. She reports she was just now able to come to the ER for evaluation. We will get a head CT and neck C-spine CT given pain. Vital Signs: Vital signs: Vital Signs Temperature 97.8 F 09/27/21 15:00 Pulse Rate 78 09/27/21 15:00 Respiratory Rate 16 09/27/21 15:00 Blood Pressure 106/76 09/27/21 15:00 Pulse Oximetry 96 09/27/21 15:00 MDM - Head Injury Medcial Decision Making 56-year-old female presents to the ER today for a headache and neck pain after an injury at work that occurred on . Patient was hit on top of the head with a 12 pound planter. Since then she has had nausea, vomiting, headache, dizziness, neck pain. CT of the head and neck is normal in the ER today. Patient likely has a mild concussion along with a cervical neck strain. We will give patient Zofran for the nausea and a muscle relaxer for the neck pain. Discussed warm, moist heat. Take anti-inflammatory as discussed. No work x1 week. Follow-up with work comp doctor or PCP in 5 to 7 days. Brain rest recommended and concussion recommendations discussed. Return to the ER with new or worsening symptoms. Patient verbalized understanding and is in agreement with the treatment plan. Lab Data Radiology Impressions Head CT 09/27/21 15:04 IMPRESSION: 1. No acute intracranial abnormality. 2. Mild diffuse cerebral atrophy and sequela of chronic small vessel ischemic disease. Cervical Spine CT 09/27/21 15:15 IMPRESSION: No acute findings. Critical Care Time Critical Care Time: Critical Care Time: No Discharge Plan Discharge Patient Disposition: Home Clinical Impression: Head injury due to trauma Qualifiers: Encounter type: initial encounter Qualified Code(s): S09.90XA - Unspecified injury of head, initial encounter Concussion Qualifiers: Encounter type: initial encounter Loss of consciousness presence/duration: without LOC Qualified Code(s): S06.0X0A - Concussion without loss of consciousness, initial encounter Sprain of cervical neck Qualifiers: Encounter type: initial encounter Qualified Code(s): S13.9XXA - Sprain of joints and ligaments of unspecified parts of neck, initial encounter Condition: Stable Prescriptions: New methocarbamol 500 mg tablet 500 mg PO TID Qty: 21 0RF ondansetron HCl 4 mg tablet 4 mg PO Q8H PRN (Reason: nausea and vomiting) 4 Days 0RF No Action levothyroxine 50 mcg capsule 50 mcg PO DAILY 0RF sertraline [Zoloft] 100 mg tablet 150 mg PO DAILY Qty: 45 2RF albuterol sulfate 90 mcg/actuation HFA aerosol inhaler 2 inh inhalation Q4H Qty: 8.5 2RF Rx Instructions: As needed for shortness of breath. Discharge Orders: Discharge ED (Routine); Ordered 09/27/21 Ordered By: Munira Baum Referrals: Chanell Moe, GRAIN OILSEED OR PASTURE GROWER [Primary Care Provider] - Discharge Diet: Usual diet Discharge Activity: Increase activity as tolerated Patient Instructions: Opioid Safety Activity Restrictions/Additional Instructions: Take medications as prescribed. Warm, moist heat recommended. Topical muscle rub recommended. Brain rest as discussed. Follow-up with work comp physician or PCP in 5 to 7 days. Return to the ER with new or worsening symptoms. Stand Alone Forms: Work/School Release Coding Level of Care Code ED Cloth Presser for Alexeig Fweduin Exam Comprehensive
--- NOTE | 2021-09-27 15:15 | CTR_ITS ---
PROCEDURE INFORMATION: Exam: CT Cervical Spine Without Contrast Exam date and time: 09/27/2021 3:33 PM Age: 56 years old Clinical indication: Injury or trauma; Other: Hit in top of head; Work related; Blunt trauma; Additional info: Hit on top of head, neck pain TECHNIQUE: Imaging protocol: Computed tomography images of the cervical spine without contrast. Radiation optimization: All CT scans at this facility use at least one of these dose optimization techniques: automated exposure control; mA and/or kV adjustment per patient size (includes targeted exams where dose is matched to clinical indication); or iterative reconstruction. COMPARISON: CT head wo con* [id number] 09/27/2021 3:30 PM RADIATION DOSE METRICS: Total DLP (mGy-cm): 386.09 FINDINGS: Bones/joints: No acute fracture. Normal alignment. Discs/Spinal canal/Neural foramina: No significant disc protrusion. No severe spinal canal stenosis. No significant neural foraminal narrowing. Lungs: Emphysematous changes at the lung apices. Soft tissues: Unremarkable. CT/CT cervical spin wo con* [id number] IMPRESSION: No acute findings.
[2021-09-27 16:19] VITALS: BP 113/70; PULSE 72; RESP 16; O2SAT 98
== END 2021-09-27 16:20 | disposition home or self-care (01) ==
PROVIDERS: Emergency Provider Physician Assistant; PCP Nurse Practitioner Family
DX: S06.0X0A Concussion without loss of consciousness, initial encounter (principal); S13.9XXA Sprain of joints and ligaments of unspecified parts of neck, initial encounter; W20.8XXA Other cause of strike by thrown, projected or falling object, initial encounter; Z87.891 Personal history of nicotine dependence; Z79.51 Long term (current) use of inhaled steroids
CPT/HCPCS: 70450; 72125; 99283

== ENCOUNTER 2021-10-06 16:10 | Emergency (ER) | payer OTHER, SELFPAY ==
[2021-10-06 16:39] VITALS: BP 115/72; PULSE 87; RESP 18; TEMP 36.6; O2SAT 96; BMI 21.6
--- NOTE | 2021-10-06 17:28 | W.ED.HA ---
HPI - Headache General: Chief Complaint: Headache Stated Complaint: post concussion, neck pain Time Seen by Provider: 10/06/21 17:28 History of Present Illness: 56-year-old female had a shelf come down on the top of her head on 24 September. Patient was evaluated in the ER with a CT of the head and neck which showed no acute abnormality. Patient reports persistent headache and discomfort since the injury. Patient appears nontoxic. Patient does appear in moderate to severe pain. Patient reports no use of pain medication today. Patient has been using naproxen only for her pain. 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 Associated symptoms: Reports nausea; Deny chest pain or fever(s) Review of Systems General: Reports: 10 or more systems reviewed and unremarkable except in HPI and below Const: Denies: fever(s) Card: Denies: chest pain Resp: Denies: dyspnea GI: Reports: nausea Musc: Reports: neck pain Neuro: Reports: headache(s) PFS ED PFSH: Medical History Nausea Psychiatric care URI (upper respiratory infection) Social History Smoking and tobacco status: former smoker Quit status (tobacco): has quit using tobacco Year quit tobacco: 2017 Second hand smoke exposure: No Alcohol intake: never Lives independently: No Household members: family Housing: House Marital status: Number of children: 3 Number of grandchildren: 2 Highest education level completed: High School Graduate service: No Current occupational status: employed Current occupation: [employer] Current occupational exposures/hazards: Yes Pets and animals: Yes Pets & animals: dog(s) History of recent travel: No Sexually active: No Current gender identity: Female Physical Exam Const: COMMON NORMALS: alert HENMT: COMMON NORMALS: normocephalic and Normal external nose present HEAD & SCALP: normocephalic NOSE: Normal external nose present MOUTH: Normal oral and palatal mucosa present Neck/C-Spine: CERVICAL SPINE: Yes cervical ROM abnormal (Decreased range of motion), Yes Paracervical muscle tenderness and Yes Paracervical spasm Resp: COMMON NORMALS: normal respiratory effort and clear to auscultation bilaterally AUSCULTATION: clear to auscultation bilaterally Cardio: COMMON NORMALS: regular rate RATE: regular rate Extremity: COMMON NORMALS: normal to inspection Neuro: HARRISON COMA SCALE: document GCS findings Harrison coma scale eye opening: Spontaneous Harrison coma scale verbal response: Orientated Harrison coma scale motor response: Obey commands [place] coma scale total score: 15 SENSORIUM/ORIENTATION: Yes alert GAIT: Yes Normal gait present Skin: COMMON NORMALS: no rashes or lesions noted GENERAL SKIN EXAM: no rashes or lesions noted Course Vital Signs: Vital signs: Vital Signs Temperature 97.9 F 10/06/21 16:39 Pulse Rate 87 10/06/21 16:39 Respiratory Rate 18 10/06/21 16:39 Blood Pressure 115/72 10/06/21 16:39 Pulse Oximetry 96 10/06/21 16:39 MDM - Headache Medical Decision Making Patient comes in for persistent headache after head injury on the . On exam patient has no focal neural deficits. Pupils are equal and reactive. Patient reports frontal to occipital headache. Patient does have muscle tenderness and tightness in the cervical spinal area. Differential diagnosis includes but not limited to intervertebral disc disease, cervical strain, postconcussion headache, intracranial bleeding. CT of the head indicated no acute bleeding. Patient was given a dose of Toradol and 1 hydrocodone tablet with minimal relief of pain. I recommended follow-up with urology for further treatment and evaluation. Patient reported understanding and agreed to plan. Patient will be prescribed naproxen 500 to take routinely for pain and inflammation. Patient was also given some promethazine for nausea due to poor results with ondansetron. Lab Data Radiology Impressions Head CT 10/06/21 17:33 IMPRESSION: No acute intracranial abnormality. Discharge Plan Discharge Patient Disposition: Home Clinical Impression: Postconcussion syndrome Condition: Stable Prescriptions: New naproxen 500 mg tablet 500 mg PO BID Qty: 20 0RF promethazine 12.5 mg tablet 12.5 mg PO TID PRN (Reason: nausea and vomiting) Qty: 20 0RF Rx Instructions: 3 doses during day; last dose no later than 4 hr before bedtime No Action levothyroxine 50 mcg capsule 50 mcg PO DAILY 0RF sertraline [Zoloft] 100 mg tablet 150 mg PO DAILY Qty: 45 2RF albuterol sulfate 90 mcg/actuation HFA aerosol inhaler 2 inh inhalation Q4H Qty: 8.5 2RF Rx Instructions: As needed for shortness of breath. methocarbamol 500 mg tablet 500 mg PO TID Qty: 21 0RF Discharge Orders: Discharge ED (Routine); Ordered 10/06/21 Ordered By: Martinez Salter Referrals: Chanell Moe, SUSTAINABLE COMMUNITIES DESIGNER [Primary Care Provider] - Discharge Diet: Usual diet Discharge Activity: Increase activity as tolerated Patient Instructions: Opioid Safety Activity Restrictions/Additional Instructions: Home and rest. Drink plenty of fluids. Use naproxen routinely for headache and discomfort. Take promethazine as needed for nausea. Follow-up with neurologist for further explanation and evaluation of persistent headache. Return to ER for new concerns Coding Level of Care Code ED Upholstery Technician for Alexeig Fwd Exam Comprehensive
--- NOTE | 2021-10-06 17:33 | CTR_ITS ---
PROCEDURE INFORMATION: Exam: CT Head Without Contrast Exam date and time: 10/06/2021 6:00 PM Age: 56 years old Clinical indication: Pain; Headache; Post-traumatic; Additional info: Persistent headache after head injury TECHNIQUE: Imaging protocol: Computed tomography of the head without contrast. Radiation optimization: All CT scans at this facility use at least one of these dose optimization techniques: automated exposure control; mA and/or kV adjustment per patient size (includes targeted exams where dose is matched to clinical indication); or iterative reconstruction. COMPARISON: CT head wo con* [id number] 09/27/2021 3:30 PM RADIATION DOSE METRICS: Total DLP (mGy-cm): 735.64 FINDINGS: Brain: No hemorrhage. No edema. Mild diffuse cerebral atrophy and sequela of chronic small vessel ischemic disease. No mass effect. Cerebral ventricles: No ventriculomegaly. Paranasal sinuses: Visualized sinuses are unremarkable. No fluid levels. Mastoid air cells: Visualized mastoid air cells are well aerated. Bones/joints: Unremarkable. No acute fracture. Soft tissues: Unremarkable. CT/CT head wo con* [id number] IMPRESSION: No acute intracranial abnormality.
[2021-10-06] MEDS: HYDROcodone-acetaminophen 5-325 mg Tablet 1 TAB PO (18:13)
[2021-10-06] MEDS: promethazine 25 mg Tablet 12.5 MG PO (18:14)
[2021-10-06] MEDS: ketorolac 30 mg/mL INJ IM (18:14)
--- NOTE | 2021-10-07 14:42 | DCPLANNER ---
Addendum entered by Alma Sky 10/16/21 07:40: Patient had a follow up appointment scheduled for 10.14.[address] Negro - patient did attend appointment. Original Note: insights manager had message to schedule a follow up appointment for patient with ortho. insights manager sent patients information to the front office staff at neurology. Patients information will be printed and reviewed. Clinic will call patient with appointment information.
== END 2021-10-06 19:13 | disposition home or self-care (01) ==
PROVIDERS: Emergency Provider Nurse Practitioner Family; PCP Nurse Practitioner Family
DX: F07.81 Postconcussional syndrome (principal)
CPT/HCPCS: 70450; 96372; 99284; J1885; Q0169

== ENCOUNTER 2021-11-26 09:50 | Outpatient (CLI) | payer OTHER, SELFPAY ==
--- NOTE | 2021-11-26 11:00 | MR_ITS ---
WS: [id number] MRI BRAIN WITHOUT CONTRAST HISTORY: Concussion. Headaches and dizziness. Nausea. COMPARISON: CT head 10/06/2021 TECHNIQUE: Diffusion imaging, multiplanar T1, T2 and FLAIR imaging obtained. No evidence for acute infarct or hemorrhage. Cerna-white matter differentiation is normal. Numerous T2 and FLAIR signal hyperintensities in the periventricular and subcortical white matter in the supratentorial brain. More than expected of the patient for this age. These signal abnormalities do not abut the corpus callosum. No petechial hemorrhages or hemosiderin. No significant atrophy or v olume loss. Ventricles and extra-axial spaces are normal. No inferior displacement of cerebellar tonsils. The sella turcica and pituitary gland are unremarkabl e. Dural venous sinuses and [place] demonstrate no abnormality on this unenhanced studies. Paranasal sinuses: Clear. Mastoid air cells: Normal. Calvarium and scalp: No skull fracture. There is a calcified nodule in the subcutaneous soft tissues towards the RIGHT parietal vertex. MR/MR head wo con* [id number] IMPRESSION: 1. No acute infarct or intracranial hemorrhage. 2. No petechial hemorrhage. 3. Moderate small vessel ischemic changes, greater than expected for patient o f this age. These findings can be seen with small vessel ischemic disease, migr aines, history of diabetes, hypertension and smoking.
== END 2021-11-26 09:51 | disposition home or self-care (01) ==
PROVIDERS: PCP Nurse Practitioner Family; Visit Provider Specialist
DX: S06.0X9A Concussion with loss of consciousness of unspecified duration, initial encounter (principal); X58.XXXA Exposure to other specified factors, initial encounter
CPT/HCPCS: 70551

== ENCOUNTER 2022-02-05 18:04 | Emergency (ER) | payer MEDICAID, SELFPAY ==
--- NOTE | 2022-02-05 18:10 | CTR_ITS ---
PROCEDURE INFORMATION: Exam: CT Head Without Contrast Exam date and time: 02/05/2022 7:21 PM Age: 56 years old Clinical indication: Injury or trauma; Fall; Blunt trauma (contusions or hematomas); Additional info: Fell, hit head TECHNIQUE: Imaging protocol: Computed tomography of the head without contrast. Radiation optimization: All CT scans at this facility use at least one of these dose optimization techniques: automated exposure control; mA and/or kV adjustment per patient size (includes targeted exams where dose is matched to clinical indication); or iterative reconstruction. COMPARISON: MR head wo con* [id number] 11/26/2021 11:19 AM RADIATION DOSE METRICS: Total DLP (mGy-cm): 1085.68 FINDINGS: Brain: No hemorrhage. No edema. Mild diffuse cerebral atrophy and sequela of chronic small vessel ischemic disease. No mass effect. Cerebral ventricles: No ventriculomegaly. Paranasal sinuses: Visualized sinuses are unremarkable. No fluid levels. Mastoid air cells: Visualized mastoid air cells are well aerated. Bones/joints: Unremarkable. No acute fracture. Soft tissues: Unremarkable. CT/CT head wo con* [id number] IMPRESSION: No acute intracranial abnormality.
[2022-02-05 18:18] VITALS: BMI 21.2
[2022-02-05 18:21] VITALS: BP 106/73; PULSE 86; RESP 18; TEMP 36.5; O2SAT 96
--- NOTE | 2022-02-05 19:15 | XRR_ITS ---
PROCEDURE INFORMATION: Exam: XR Cervical Spine Exam date and time: 02/05/2022 7:33 PM Age: 56 years old Clinical indication: Pain; Cervicalgia; Additional info: Fall TECHNIQUE: Imaging protocol: Radiologic exam of the cervical spine. Views: 2 or 3 views. COMPARISON: CT cervical spin wo con* [id number] 09/27/2021 3:33 PM FINDINGS: Bones/joints: No acute fracture. Normal alignment. Soft tissues: Unremarkable. XR/XR cervical spine 3V* [id number] IMPRESSION: No acute findings.
--- NOTE | 2022-02-05 19:16 | XRR_ITS ---
PROCEDURE INFORMATION: Exam: XR Thoracic Spine Exam date and time: 02/05/2022 7:33 PM Age: 56 years old Clinical indication: Pain in thoracic spine; Additional info: Fall TECHNIQUE: Imaging protocol: Radiologic exam of the thoracic spine. Views: 3 views. COMPARISON: CT cervical spin wo con* [id number] 09/27/2021 3:33 PM FINDINGS: Bones/joints: No acute fracture. Normal alignment. Soft tissues: Unremarkable. XR/XR thoracic spine 2V [id number] IMPRESSION: No acute findings.
--- NOTE | 2022-02-05 20:03 | W.ED.FALL ---
HPI - Fall General: Chief Complaint: Fall Stated Complaint: Fell Hit back of Head Time Seen by Provider: 02/05/22 18:30 History of Present Illness: Patient is in here for head pain. She reports that 3 days ago she fell backwards off a 3 foot platform and hit the back of her head. He denies loss of consciousness. She reports that she hit the back of her head the back of her shoulders and her upper back they are all very sore. She reports that since that time she has felt extremely tired and somewhat nauseated. She denies any vision changes. Associated symptoms-after fall: Reports headache(s); Denies difficulty walking Review of Systems Const: Reports: change in appetite; Denies: fever(s) or chills Eyes: Denies: change in vision or blurry vision Resp: Denies: dyspnea GI: Reports: nausea Neuro: Reports: headache(s) and dizziness; Denies: numbness in extremities, weakness in extremities, sensory changes, lack of coordination or difficulty walking [facility] ED PFSH: Medical History Nausea Psychiatric care URI (upper respiratory infection) Social History Smoking and tobacco status: former smoker Quit status (tobacco): has quit using tobacco Year quit tobacco: 2017 Second hand smoke exposure: No Smoking risk assessment/counseling performed?: No Alcohol intake: never Desire information about alcohol rehabilitation?: No Counseling given: No Desire information about substance/drug rehabilitation?: No Counseling given: No Lives independently: No Household members: family Housing: House Marital status: Number of children: 3 Number of grandchildren: 2 Highest education level completed: High School Graduate service: No Current occupational status: employed Current occupation: [employer] Current occupational exposures/hazards: Yes Pets and animals: Yes Pets & animals: dog(s) History of recent travel: No Sexually active: No Current gender identity: Female Physical Exam Const: COMMON NORMALS: no acute distress, patient oriented x3, no limitations and alert Eye: COMMON NORMALS: Equal, round and reactive pupils present, EOMs intact bilaterally, conjunctivae normal, no scleral icterus and normal visual duran by confrontation CONJUNCTIVA: Yes conjunctivae normal PUPIL: Yes Equal, round and reactive pupils present Neck/C-Spine: COMMON NORMALS: full ROM, no lymphadenopathy, supple and no JVD Resp: COMMON NORMALS: normal respiratory effort, No use of accessory muscles and clear to auscultation bilaterally AUSCULTATION: clear to auscultation bilaterally Cardio: COMMON NORMALS: no JVD, regular rate, regular rhythm, S1 normal heart sound present, S2 normal heart sound present and No murmurs present (Cardio) RATE: regular rate RHYTHM: regular rhythm HEART SOUNDS: S1 normal heart sound present and S2 normal heart sound present Neuro: COMMON NORMALS: patient oriented x3, CN's II-XII intact bilaterally, moves all extremities, no focal motor deficits and no sensory deficits noted SENSORIUM/ORIENTATION: Yes alert Course Vital Signs: Vital signs: Vital Signs Temperature 97.7 F 02/05/22 18:21 Pulse Rate 86 02/05/22 18:21 Respiratory Rate 18 02/05/22 18:21 Blood Pressure 106/73 02/05/22 18:21 Pulse Oximetry 96 02/05/22 18:21 Oxygen Delivery Me thod 02/05/22 18:21 MDM - Fall Medical Decision Making 56-year-old female in for head injury 3 days ago. Fell from a 3 foot platform backwards hitting the back of her head. She is tender to palpation occipital region. No obvious bony deformity is appreciated. No bruising or bleeding noted to the area. Patient has full range of motion of her neck. She has some tenderness to palpation of cervical paraspinal muscles. Some tenderness to palpation trapezius. CT head negative, x-ray cervical spine and thoracic spine negative. We will treat patient for concussion. Discussed brain rest. Provide patient a note for work. Advised patient of conservative management at home. Follow-up with primary care provider next week for reevaluation. Return to the ER for any new or worsening symptoms including increased head pain, changes in vision, neurologic changes, vomiting. Patient is stable for discharge at this time and agreeable with treatment plan. All questions answered to satisfaction. Lab Data Radiology Impressions Head CT 02/05/22 18:10 IMPRESSION: No acute intracranial abnormality. Cervical Spine X-Ray 02/05/22 19:15 IMPRESSION: No acute findings. Thoracic Spine X-Ray 02/05/22 19:16 IMPRESSION: No acute findings. Discharge Plan Discharge Patient Disposition: Home Clinical Impression: Concussion without loss of consciousness Condition: Stable Prescriptions: No Action levothyroxine 50 mcg capsule 50 mcg PO DAILY sertraline [Zoloft] 100 mg tablet 150 mg PO DAILY Qty: 45 2RF amitriptyline 25 mg tablet 25 mg PO .hs Qty: 30 2RF Rx Instructions: Take 1 tablet at bedtime albuterol sulfate 90 mcg/actuation HFA aerosol inhaler 2 inh inhalation Q4H Qty: 8.5 2RF Rx Instructions: As needed for shortness of breath. Discharge Orders: Discharge ED (Routine); Ordered 02/05/22 Ordered By: Casie Lynn Referrals: Chanell Moe FNP [Primary Care Provider] - Discharge Diet: Usual diet Discharge Activity: Limit activity as instructed Patient Instructions: Concussion/Head Injury - Adult Activity Restrictions/Additional Instructions: I recommend brain rest for the next 72 hours. Limit screen time, lights, talking. Note for work will be given. Follow-up with your primary care provider next week for reevaluation. Return to the ER for any new or worsening symptoms including increased pain, neurologic changes, changes in vision, vomiting. Stand Alone Forms: Work/School Release Coding Level of Care Code ED Production Planning Manager for Miesha Fwd Exam Detailed
== END 2022-02-05 20:33 | disposition home or self-care (01) ==
PROVIDERS: Emergency Provider Nurse Practitioner Family; PCP Nurse Practitioner Family
DX: S06.0X0A Concussion without loss of consciousness, initial encounter (principal); Z87.891 Personal history of nicotine dependence; W17.89XA Other fall from one level to another, initial encounter
CPT/HCPCS: 70450; 72040; 72070; 99284

== ENCOUNTER 2022-02-25 10:30 | Outpatient (CLI) | payer MEDICAID, SELFPAY ==
--- NOTE | 2022-02-25 11:02 | XRR_ITS ---
PROCEDURE INFORMATION: Exam: XR Chest Exam date and time: 02/25/2022 11:03 AM Age: 57 years old Clinical indication: Cough and shortness of breath; Patient HX: Post covid symptoms, difficulty breathing TECHNIQUE: Imaging protocol: Radiologic exam of the chest. Views: 2 views. COMPARISON: CR XR chest 1V portable [id number] 06/19/2021 11:08 AM FINDINGS: Lungs: Severe emphysema. Lungs are well aerated without a focal area of consolidation. Pleural spaces: Unremarkable. No pleural effusion. No pneumothorax. Heart/Mediastinum: Unremarkable. No cardiomegaly. Bones/joints: Unremarkable. XR/XR chest 2V* [id number] IMPRESSION: Lungs are well aerated without a focal area of consolidation.
== END 2022-02-25 10:31 | disposition home or self-care (01) ==
LOC: RAD 10:34
PROVIDERS: PCP Family Medicine; Visit Provider Family Medicine
DX: R05.8 Other specified cough (principal); R06.02 Shortness of breath
CPT/HCPCS: 71046

== ENCOUNTER 2022-03-16 13:34 | Outpatient (CLI) | payer MEDICAID, SELFPAY | END 2022-03-16 13:35 | disposition home or self-care (01) | PROVIDERS: PCP Family Medicine; Visit Provider Nurse Practitioner Family | DX: J43.9 Emphysema, unspecified (principal) | CPT/HCPCS: 94060; J7613 ==

== ENCOUNTER 2022-07-14 11:23 | Outpatient (CLI) | payer MEDICAID, SELFPAY ==
--- NOTE | 2022-07-14 11:45 | MR_ITS ---
WS: [id number] MRI BRAIN WITHOUT CONTRAST HISTORY: F07.81 - Postconcussional syndrome COMPARISON: 11/26/2021 TECHNIQUE: Diffusion imaging, multiplanar T1, T2 and FLAIR imaging obtained. No evidence for acute infarct or hemorrhage. Cerna-white matter differentiation is normal. Numerous sc attered T2 and FLAIR signal hyperintensities present in the supratentorial white matter. No obvious p rogression since the prior exam. White matter lesions are greater than expected for a patient of this age. No infarct or hemorrhage. No remote or acute infarcts are volume loss. Ventricles and extra-axial spaces are normal. No inferior displacement of cerebellar tonsils. The sella turcica and pituitary gland are unremarkabl e. Dural venous sinuses and [place] demonstrate no abnormality on this unenhanced studies. Paranasal sinuses: Minimal mucoperiosteal thickening. Mastoid air cells: Normal. Calvarium and scalp: Skull is intact. There is a scalp calcification high RIGHT parietal is unchanged . MR/MR head wo con* [id number] IMPRESSION: 1. No acute infarct or hemorrhage. 2. Moderate small vessel ischemic type changes in the subcortical white matter . More than expected for a patient of this age but no progression since 11/27/19 22. Differential includes small vessel ischemic disease, migraines, diabetes, h ypertension and smoking.
== END 2022-07-14 11:24 | disposition home or self-care (01) ==
PROVIDERS: PCP Family Medicine; Visit Provider Specialist
DX: S09.90XA Unspecified injury of head, initial encounter (principal); F07.81 Postconcussional syndrome; I67.82 Cerebral ischemia; X58.XXXA Exposure to other specified factors, initial encounter
CPT/HCPCS: 70551

== ENCOUNTER → 2023-02-08 15:22 | Outpatient (BNVA) | payer MEDICAID, SELFPAY | PROVIDERS: PCP Nurse Practitioner Family; Visit Provider Dermatology | DX: D48.5 Neoplasm of uncertain behavior of skin (principal); L57.8 Other skin changes due to chronic exposure to nonionizing radiation | CPT/HCPCS: 99213 ==

== ENCOUNTER 2023-11-04 09:27 | Outpatient (CLI) | payer SELFPAY ==
--- NOTE | 2023-11-04 09:30 | XR_ITS ---
WS: [id number] Exam: XR chest 2V* [id number] Date/Time of Exam: 11/04/2023 9:35 AM Reason For Exam: DYSPNEA Comparison 02/25/2022. The lungs are hyperinflated and clear. Normal cardiomediastinal silhouette. No pleural effusions. Bon y structures are intact. XR/XR chest 2V* [id number] IMPRESSION: 1. Pulmonary hyperinflation. No acute process.
== END 2023-11-04 09:28 | disposition home or self-care (01) ==
LOC: RAD 09:29
PROVIDERS: PCP Nurse Practitioner Family; Visit Provider Family Medicine
DX: R06.00 Dyspnea, unspecified (principal)
CPT/HCPCS: 71046

== ENCOUNTER → 2023-12-14 14:49 | Outpatient (BNVA) | payer SELFPAY | PROVIDERS: PCP Nurse Practitioner Family; Visit Provider Nurse Practitioner Women's Health | DX: N39.0 Urinary tract infection, site not specified (principal); N89.8 Other specified noninflammatory disorders of vagina | CPT/HCPCS: 84315; 87077; 87086; 87184; 87529 ==

== ENCOUNTER → 2023-12-28 09:19 | Outpatient (BNVA) | payer OTHER, SELFPAY | PROVIDERS: PCP Nurse Practitioner Family; Visit Provider Nurse Practitioner Women's Health | DX: N39.0 Urinary tract infection, site not specified (principal) | CPT/HCPCS: 84315; 87086 ==

== ENCOUNTER 2024-06-10 01:07 | Emergency (ER) | payer SELFPAY ==
[2024-06-10] VITALS (19 sets, daily range): BP systolic 90–106; BP diastolic 57–70; PULSE 86–151; RESP 15–25; TEMP 36.7–37.8; O2SAT 89–93; BMI 20.5
--- NOTE | 2024-06-10 01:14 | ECG_ITS ---
[employer] Test Date: 2024-06-10 Pat Name: Kerrie Solorzano Department: Room: Gender: Female Test Facility Engineer: : [id number] Requested By: Luis Judge Order Number: [id number] Reading MD: Measurements Intervals [place] Rate: 148 P: 85 AK: 140 QRS: 99 QRSD: 76 T: 83 QT: 315 QTc: 496 Interpretive Statements SINUS TACHYCARDIA, POSSIBLE ATRIAL FLUTTER BORDERLINE RIGHT AXIS DEVIATION [QRS AXIS > 90] NONSPECIFIC ST & T-WAVE ABNORMALITY ABNORMAL RHYTHM ECG [email or web address]
--- NOTE | 2024-06-10 01:20 | XRR_ITS ---
PROCEDURE INFORMATION: Exam: XR Chest Exam date and time: 06/10/2024 1:34 AM Age: 59 years old Clinical indication: Pain; Shortness of breath; Chest pressure; C/O cp with SOB. ; Additional info: Cp SOB TECHNIQUE: Imaging protocol: Radiologic exam of the chest. Views: 1 view. COMPARISON: CR XR chest 2V* [id number] 11/04/2023 9:37 AM FINDINGS: Lungs: Lungs are hyperinflated. No consolidation is appreciated. Pleural spaces: Unremarkable. No pleural effusion. No pneumothorax. Heart/Mediastinum: Unremarkable. No cardiomegaly. Bones/joints: Unremarkable. XR/XR chest 1V portable [id number] IMPRESSION: No acute findings.
[2024-06-10 02:05] LABS: Basophils # 0.1 10^3/uL (0.0-0.1); Basophils % 0.6 %; Eosinophils % 0.3 %; Hematocrit 43.1 % (36-47); Lymphocytes # 0.6 10^3/uL (0.8-4.8); Lymphocytes % 6.7 %; Mean Corpuscular HGB Conc 30.9 g/dL (30-55); Mean Corpuscular Hemoglobin 27.7 pg (27-33); Mean Corpuscular Volume 89.8 fl (85-98); Mean Platelet Volume 9.4 fL (7.4-10.4); Monocytes # 0.7 10^3/uL (0.2-0.9); Monocytes % 7.9 %; Neutrophils # 7.65 10^3/uL (1.8-7.7); Neutrophils % 84.2 %; Nucleated Red Blood Cells % 0 %; Platelet Count 181 10^3/cmm (157-399); Red Cell Distribution Width 12.8 % (12.1-15.1); White Blood Count 9.09 10^3/uL (3.29-11.43)
[2024-06-10 02:05] LABS: Covid PCR NEGATIVE (Negative); Influenza A POSITIVE (Negative); Influenza B NEGATIVE (Negative); Respiratory Syncytial Virus Ce NEGATIVE (Negative)
--- NOTE | 2024-06-10 02:06 | ED_ITS ---
HPI - SOB/Dyspnea 2 General: Chief Complaint: Shortness of Breath/Dyspnea Stated Complaint: Shortness of breath, Chest Pain Time Seen by Provider: 06/10/24 01:54 History of Present Illness: HPI Narrative: 59-year-old female presenting with a few days of shortness of breath, some cough, and some chest pain with breathing. At home, she says she has been breathing quite quickly, and began develop paresthesias of her hands and feet which are now improved. Her daughter states she has been taking Mucinex without much relief. She has been congested. 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 Related Data Home Medications Medication Instructions Recorded Confirmed levothyroxine 50 mcg capsule 50 mcg PO DAILY 08/08/20 12/28/23 Previous Rx's Medication Instructions Recorded albuterol sulfate 90 mcg/actuation 2 inh inhalation Q4H #8.5 grams 02/27/21 aerosol inhaler amitriptyline 50 mg tablet 50 mg PO .HS #30 tabs 11/24/23 sertraline 100 mg tablet (Zoloft) 200 mg (2 x 100 mg) PO DAILY #60 11/24/23 tabs fluconazole 150 mg tablet 150 mg PO Q3D #3 tabs 12/14/23 nitrofurantoin 100 mg PO BID #90 caps 12/14/23 monohydrate/macrocrystals 100 mg capsule (Macrobid) nystatin-triamcinolone 100,000 1 applic topical BID #30 grams 12/14/23 unit/gram-0.1 % topical ointment doxycycline hyclate 100 mg tablet 100 mg PO BID 7 days #14 tabs 06/10/24 methylprednisolone 4 mg tablets in See Rx Instructions PO .COMPLEX 06/10/24 a dose pack (Medrol (Anthony)) #21 ea oseltamivir 75 mg capsule (Tamiflu) 75 mg PO BID 5 days #10 caps 06/10/24 Allergies Allergy/AdvReac Type Severity Reaction Status Date / Time Penicillins Allergy Severe ALGY-Anaphy Verified 04/26/24 14:46 laxis PFS ED 2 PFSH: Medical History Psychiatric care Nausea URI (upper respiratory infection) Social History (Reviewed 06/10/24 @ 02:07 by JOSE ANTONIO Sr Smoking and tobacco/nicotine status: never used tobacco/nicotine Physical Exam 2 Const: COMMON NORMALS: no acute distress GENERAL APPEARANCE: cooperative; not ill appearing and not frail appearing HENMT: COMMON NORMALS: normocephalic, atraumatic and Normal external nose present HEAD & SCALP: normocephalic and atraumatic FACE & SINUS: normal facial exam and face symmetric NOSE: Normal external nose present Eye: COMMON NORMALS: Equal, round and reactive pupils present and EOMs intact bilaterally PUPIL: Yes Equal, round and reactive pupils present Neck/C-Spine: GENERAL: Yes trachea midline Chest: CHEST: Yes Symmetrical chest wall rise Resp: EFFORT & INSPECTION: Yes tachypneic AUSCULTATION: rhonchi, wheezes and diminished lung sounds Cardio: COMMON NORMALS: regular rhythm RATE: tachycardic RHYTHM: regular rhythm GI: COMMON NORMALS: Normal to inspection, nondistended, normoactive bowel sounds present Extremity: COMMON NORMALS: no pedal edema Neuro: MARLEN COMA SCALE: document GCS findings Tennyson coma scale eye opening: Spontaneous Tennyson coma scale verbal response: Orientated Tennyson coma scale motor response: Obey commands Tennyson coma scale total score: 15 S ENSORY EXAM: Yes extremities (intact) Psych: COMMON NORMALS: speech normal SPEECH: Yes normal speech Skin: COMMON NORMALS: no rashes or lesions noted GENERAL SKIN EXAM: no rashes or lesions noted Course 2 Vital Signs: Vital signs: Vital Signs Temperature 98.0 F 06/10/24 04:15 Pulse Rate 87 06/10/24 05:39 Respiratory Rate 20 H 06/10/24 05:39 Blood Pressure 105/63 06/10/24 05:39 Pulse Oximetry 92 06/10/24 05:39 Oxygen Delivery Me thod Room Air 06/10/24 03:17 MDM - SOB/Dyspnea Medical Decision Making Patient's oxygen saturations are marginal. She has however not requiring oxygen. She has walked in the emergency room without oxygen, and recovered quickly. Blood pressure is improved after saline bolus. Fevers resolved. Heart rate is now below 100 after fever has improved. White blood cell count is 9. Bicarbonate is 19. Chest x-ray is nonacute. She is influenza A positive. Delta troponin is 1.7 with a BNP of 110. She will be allowed discharge home. She knows to return for worsening shortness of breath despite treatment. She will go home on steroids, antibiotics, antivirals. She will continue her albuterol at home. Close outpatient follow-up. Lab Data 06/10/24 02:00 06/10/24 02:00 Labs/Radiology: Radiology Impressions Chest X-Ray 06/10/24 01:20 IMPRESSION: No acute findings. Laboratory Results WBC 9.09 10^3/uL (3.29-11.43) 06/10/24 02:00 RBC 4.80 10^6/uL (3.85-5.65) 06/10/24 02:00 Hgb 13.30 g/dL (11.27-16.99) 06/10/24 02:00 Hct 43.1 % (36-47) 06/10/24 02:00 MCV 89.8 fl (85-98) 06/10/24 02:00 MCH 27.7 pg (27-33) 06/10/24 02:00 MCHC 30.9 g/dL (30-55) 06/10/24 02:00 RDW 12.8 % (12.1-15.1) 06/10/24 02:00 Plt Count 181 10^3/cmm (157-399) 06/10/24 02:00 MPV 9.4 fL (7.4-10.4) 06/10/24 02:00 Neut % (Auto) 84.2 % 06/10/24 02:00 Lymph % (Auto) 6.7 % 06/10/24 02:00 [place] % (Auto) 7.9 % 06/10/24 02:00 Eos % (Auto) 0.3 % 06/10/24 02:00 Baso % (Auto) 0.6 % 06/10/24 02:00 Neut # (Auto) 7.65 10^3/uL (1.8-7.7) 06/10/24 02:00 Lymph # (Auto) 0.6 10^3/uL (0.8-4.8) L 06/10/24 02:00 [place] # (Auto) 0.7 10^3/uL (0.2-0.9) 06/10/24 02:00 Eos # (Auto) 0.0 10^3/uL (0.0-0.8) 06/10/24 02:00 Baso # (Auto) 0.1 10^3/uL (0.0-0.1) 06/10/24 02:00 Nucleated RBC % (auto) 0 % 06/10/24 02:00 Nucleated RBCs # 0.0 /100WBC 06/10/24 02:00 Sodium 132 mmol/L (136-145) L 06/10/24 02:00 Potassium 3.7 mmol/L (3.5-5.1) 06/10/24 02:00 Chloride 94 mmol/L (98-107) L 06/10/24 02:00 Carbon Dioxide 19 mmol/L (22-29) L 06/10/24 02:00 Anion Gap 22.7 (5-19) H 06/10/24 02:00 BUN 15 mg/dL (8-23) 06/10/24 02:00 Creatinine 1.2 mg/dL (0.5-0.9) H 06/10/24 02:00 GFR Calculation 45.8 mL/min (90-130) L 06/10/24 02:00 Glucose 159 mg/dL (65-115) H 06/10/24 02:00 Calculated Osmolality 278 mOsm/kg (285-295) L 06/10/24 02:00 Lactic Acid 2.5 mmol/L (0.5-2.2) H 06/10/24 02:00 Lactic Acid (Sepsis) 0.9 mmol/L (0.5-2.2) 06/10/24 04:29 Calcium 8.9 mg/dL (8.5-10.5) 06/10/24 02:00 Total Bilirubin 0.8 mg/dL (0.15-1.2) 06/10/24 02:00 AST 33 U/L (0-32) H 06/10/24 02:00 ALT 25 U/L (0-33) 06/10/24 02:00 Alkaline Phosphatase 98 U/L (35-105) 06/10/24 02:00 Troponin T Baseline 14 ng/L (0-10) H 06/10/24 02:00 Troponin T 120 Minute 15.65 ng/L (0-10) H 06/10/24 04:29 Delta Troponin T 1.65 ABS# (0-10) 06/10/24 04:29 NT-Pro-B Natriuret Pep 110 pg/mL (0-125) 06/10/24 02:00 Total Protein 6.6 g/dL (6.6-8.7) 06/10/24 02:00 Albumin 4.2 g/dL (3.5-5.2) 06/10/24 02:00 Globulin 2.4 g/dL (1.3-4.6) 06/10/24 02:00 Coronavirus (PCR) Negative (Negative) 06/10/24 01:20 Influenza A (PCR) Positive (Negative) 06/10/24 01:20 Influenza Type B (PCR) Negative (Negative) 06/10/24 01:20 RSV (PCR) Negative (Negative) 06/10/24 01:20 All radiology interpretation(s) finalized by discharge Discharge Plan Discharge Patient Disposition: Home Clinical Impression: Influenza A, Acute bronchitis Condition: Stable Prescriptions: New methylprednisolone [Medrol (Anthony)] 4 mg tablets,dose pack See Rx Instructions .ROUTE .COMPLEX Qty: 21 0RF Rx Instructions: orally per package directions doxycycline hyclate 100 mg tablet 100 mg PO BID 7 Days Qty: 14 0RF oseltamivir [Tamiflu] 75 mg capsule 75 mg PO BID 5 Days Qty: 10 0RF No Action levothyroxine 50 mcg capsule 50 mcg PO DAILY amitriptyline 50 mg tablet 50 mg PO .HS Qty: 30 11RF sertraline [Zoloft] 100 mg tablet 200 mg PO DAILY Qty: 60 11RF nystatin-triamcinolone 100,000-0.1 unit/gram-% ointment 1 applic topical BID Qty: 30 0RF nitrofurantoin monohyd/m-cryst [Macrobid] 100 mg capsule 100 mg PO BID Qty: 90 1RF Rx Instructions: must administer with a meal/food fluconazole 150 mg tablet 150 mg PO Q3D Qty: 3 0RF Rx Instructions: may repeat third dose 72 hrs after second dose if symptoms persist albuterol sulfate 90 mcg/actuation HFA aerosol inhaler 2 inh inhalation Q4H Qty: 8.5 2RF Rx Instructions: As needed for shortness of breath. Discharge Orders: Discharge ED (Routine); Ordered 06/10/24 Ordered By: Luis Lee Referrals: Chanell Moe, ENVIRONMENTAL HEALTH SAFETY MANAGER [Primary Care Provider] - 1-3 days Patient Instructions: Influenza (ED), Acute Bronchitis (ED), Opioid Safety, Pain Management Activity Restrictions/Additional Instructions: Medications as directed. Use your breathing treatments every 4 hours while awake for the next 48 hours whether you feel you need them or not. Following this, use them as needed. Return the emergency department for worsening shortness of breath despite treatment, worsening chest discomfort, any other concerning symptoms. See your doctor this week. Coding Level of Care Code ED Sql Report Developer for Miesha Ramirez
[2024-06-10 02:22] LABS: Troponin(5th) Baseline 14 ng/L (0-10)
[2024-06-10 02:23] LABS: Lactic Sepsis W/Reflex 2.5 mmol/L (0.5-2.2)
[2024-06-10] MEDS: sodium chloride 0.9% 1,000 ML 999 ML IV (02:24)
[2024-06-10] MEDS: acetaminophen 325 mg Tablet 650 MG PO (02:25)
[2024-06-10 02:57] LABS: Alanine Aminotransferase 25 U/L (0-33); Albumin Level 4.2 g/dL (3.5-5.2); Alkaline Phosphatase 98 U/L (35-105); Anion Gap 22.7 (5-19); Aspartate Amino Transferase 33 U/L (0-32); Blood Urea Nitrogen 15 mg/dL (8-23); Calcium 8.9 mg/dL (8.5-10.5); Carbon Dioxide 19 mmol/L (22-29); Chloride 94 mmol/L (98-107); Creatinine Clr Calc Pharmacy 49.4527; Globulin 2.4 g/dL (1.3-4.6); Glomerular Filtration Rate 45.8 mL/min (90-130); Glucose 159 mg/dL (65-115); Osmolality Calculated 278 mOsm/kg (285-295); Potassium 3.7 mmol/L (3.5-5.1); Sodium 132 mmol/L (136-145); Total Bilirubin 0.8 mg/dL (0.15-1.2); Total Protein 6.6 g/dL (6.6-8.7)
[2024-06-10 02:59] LABS: NT Pro B Type Natriuretic Pept 110 pg/mL (0-125)
[2024-06-10] MEDS: methylPREDNISolone sod succ 125 mg/2 mL INJ IVP (03:16)
[2024-06-10] MEDS: levalbuterol 1.25 mg/3 mL Neb INHALATION (03:16)
[2024-06-10 03:53] LABS: Reflex Lactate Order REFLEX LACTIC ORDERD
[2024-06-10 04:57] LABS: Troponin 5 2HR 15.65 ng/L (0-10); Troponin 5 2HR Delta 1.65 ABS# (0-10)
[2024-06-10 05:01] LABS: Lactic Acid level (Lactate) 0.9 mmol/L (0.5-2.2)
[2024-06-10] MEDS: oseltamivir phosphate 75 mg Capsule PO (05:36)
[2024-06-10] MEDS: doxycycline 100 mg Tablet PO (05:36)
== END 2024-06-10 05:42 | disposition home or self-care (01) ==
PROVIDERS: Emergency Provider Emergency Medicine; PCP Nurse Practitioner Family
DX: J10.1 Influenza due to other identified influenza virus with other respiratory manifestations (principal); Z11.52 Encounter for screening for COVID-19; J20.9 Acute bronchitis, unspecified
CPT/HCPCS: 36415; 71045; 80053; 83605; 83880; 84484; 85025; 87637; 93005; 94640; 96374; 99285; J2919; J7030; J7614

== ENCOUNTER 2024-08-08 07:02 | Outpatient (CLI) | payer SELFPAY ==
[2024-08-08 07:26] VITALS: PULSE 90; RESP 18; O2SAT 94
[2024-08-08] MEDS: albuterol 2.5 mg/3 mL Neb INHALATION (07:26)
== END 2024-08-08 07:03 | disposition home or self-care (01) ==
PROVIDERS: PCP Nurse Practitioner Family; Visit Provider Nurse Practitioner Family
DX: J44.9 Chronic obstructive pulmonary disease, unspecified (principal); J98.8 Other specified respiratory disorders
CPT/HCPCS: 94060; 94729